=== PATIENT | female | born 1940 | race Caucasian/White ===

== ENCOUNTER → 2016-11-13 | Outpatient (REF) | payer MEDICARE ==
[~2016-11-13] MED LIST: ASPI81TA7 PO; ASPI81TA85 PO; CLOP75TA2 PO; DIGO0.126 PO; DIGO25TA PO; DILT120C14 PO; DOCU10ELUD PO; FURO20TA2 PO; FURO40TA2 PO; GABA250S PO; GABA300C2 PO; GLUC5TAB3 PO; INSUH10VL INJ; INSULANT SC; ISOS20TA2 PO; KETO75CA PO; LASI20TA PO; LEVO250T PO; LISI5TAB PO; MIRT45TA PO; NYST1000 SS; PERF20NE2 IN; PRAV40TA PO; PRED10TA2 PO; PRED50TA2 PO; PRED5TAB PO; ROPI1TAB PO; ROPI2TAB24 PO; SENO8.6T9 PO; STOO100C PO; VITA10002 PO; ZANT150T PO; [UNRECOGNIZED DRUG - OTHER] INH
[2016-11-13 11:52] LABS: MEAN CORPUSCULAR HEMOGLOBIN 27.3 pg (27.0-33.0); MEAN CORPUSCULAR HGB CONC 31.9 g/dl (32.0-36.5); MEAN CORPUSCULAR VOLUME 85.6 fl (80.0-96.0); RED CELL DISTRIBUTION WIDTH 14.3 % (11.5-14.5); WHITE BLOOD COUNT 7.3 K/mm3 (4.0-10.0)
[2016-11-13 12:14] LABS: ALBUMIN/GLOBULIN RATIO 1.05 (1.00-1.93); BILIRUBIN,TOTAL 0.4 MG/DL (0.2-1.0); CALCIUM LEVEL 9.3 MG/DL (8.8-10.2); CREATININE FOR GFR 1.04 MG/DL (0.55-1.02); GLOMERULAR FILTRATION RATE 54.7 (>39); POTASSIUM SERUM 4.6 MEQ/L (3.5-5.1); TOTAL PROTEIN 7.8 GM/DL (6.4-8.2)
== END ==
LOC: M SFHCLERA 10:07
PROVIDERS: ATTEND Family Medicine
DX: Z51.81 Encounter for therapeutic drug level monitoring (principal); Z79.4 Long term (current) use of insulin; E11.9 Type 2 diabetes mellitus without complications
CPT/HCPCS: 80053; 80061; 81001; 82043; 83036; 85027; G0463

== ENCOUNTER → 2016-12-19 | Outpatient (CLI) | payer MEDICARE ==
--- NOTE | 2016-12-19 15:08 | DEXA ---
AP SPINE L1 - L4 0.818 -3.0 -0.6 LT FEMUR TOTAL 0.624 -3.0 -0.7 RT FEMUR TOTAL 0.686 -2.6 -0.2 TOTAL BODY TOTAL OTHER DUAL FEMUR FRAX* ASSESSMENT Risk factors: Premature menopause. 10 year probability of fracture Major osteoporotic fracture 18.8 % Hip fracture 7.5 % COMMENTS: There is osteoporosis of the spine and hips. Mild levoconvex lumbar scoliosis. FOLLOW-UP: Recommendation for the next bone density exam: 2 years. MTDD
== END ==
LOC: M WHC 09:12
PROVIDERS: ATTEND Family Medicine
DX: M81.0 Age-related osteoporosis without current pathological fracture (principal)

== ENCOUNTER 2016-12-27 16:22 | Inpatient (IN) | payer MEDICARE ==
[~2016-12-27] VITALS: Ht 149.9 cm; Wt 48.6 kg
[~2016-12-27 16:22] MED LIST changes: -ALEN70TA39 PO; -ANOR1AER INH; -ASPI1TAB PO; -B-1210009 PO; -CYCL10TA PO; -DIGO0.12 PO; -DILT180C PO; -GABA300C3 PO; -INSUH10VL SC; -ISOS30TA4 PO; -LEVA500T PO; -MIRT30TA3 PO; -PLAV75TA38 PO; -PRAV80TA2 PO; -PRED10TA PO; -RANI150T PO; -SENO8.6T10 PO; -SING10TA32 PO; -VITA400C2 PO; -[UNRECOGNIZED DRUG - CODE] PO
[2016-12-27] MEDS ORDERED: methylPREDNISolone INJ 125 MG/2 ML VIAL (J2930) IV ONE (17:00)
[2016-12-27] MEDS ORDERED: ALBUTEROL SULFATE 2.5 MG/0.5 ML INH NEB SOLN INH ONE (17:00)
[2016-12-27] MEDS ORDERED: IPRATROPIUM 0.5MG/ALBUTEROL 2.5MG INH SOL UD 3ML (DUONEB)(J7620) NEB ONE (17:00)
[2016-12-27 17:32] LABS: BASO % 0.1 % (0.0-1.0); EOS % 0.3 % (0.0-3.0); LARGE UNSTAINED CELL # 0.1 K/mm3 (0.0-0.4); LYMPH # 0.5 K/mm3 (1.5-4.5); LYMPH % 4.3 % (24.0-44.0); MEAN CORPUSCULAR HEMOGLOBIN 27.1 pg (27.0-33.0); MEAN CORPUSCULAR VOLUME 84.7 fl (80.0-96.0); MONO # 0.5 K/mm3 (0.0-0.8); MONO % 4.7 % (0.0-5.0); NEUTROPHILS # 10.4 K/mm3 (1.8-7.7); NEUTROPHILS % 89.7 % (36.0-66.0); PLATELET COUNT, AUTOMATED 182 k/mm3 (150-450); RED CELL DISTRIBUTION WIDTH 14.1 % (11.5-14.5); WHITE BLOOD COUNT 11.6 K/mm3 (4.0-10.0)
[2016-12-27 17:35] LABS: ALBUMIN 3.6 GM/DL (3.2-5.2); ALBUMIN/GLOBULIN RATIO 1.03 (1.00-1.93); ALKALINE PHOSPHATASE 86 U/L (45-117); ALT/SGPT 16 U/L (12-78); ANION GAP 8 MEQ/L (8-16); AST/SGOT 16 U/L (15-37); BILIRUBIN,DIRECT 0.1 MG/DL (0.0-0.2); BLOOD UREA NITROGEN 11 MG/DL (7-18); CALCIUM LEVEL 8.1 MG/DL (8.8-10.2); CARBON DIOXIDE LEVEL 28 MEQ/L (21-32); CHLORIDE LEVEL 104 MEQ/L (98-107); CREATININE FOR GFR 0.94 MG/DL (0.55-1.02); FREE T4 1.06 NG/DL (0.76-1.46); GLOMERULAR FILTRATION RATE > 60.0 (>39); GLUCOSE, FASTING 146 MG/DL (83-110); POTASSIUM SERUM 3.9 MEQ/L (3.5-5.1); SODIUM LEVEL 140 MEQ/L (136-145); TOTAL PROTEIN 7.1 GM/DL (6.4-8.2)
[2016-12-27 17:41] LABS: BILIRUBIN,TOTAL 0.3 MG/DL (0.2-1.0)
[2016-12-27] MEDS ORDERED: ACETAMINOPHEN TAB 650MG DOSE (2X325MG) PO ONE (17:45)
[2016-12-27 18:08] LABS: ABG BASE EXCESS -1.2 (-2.0-2.0); ABG PARTIAL PRESSURE CO2 32.6 mmHg (35.0-45.0); ABG PARTIAL PRESSURE O2 104.3 mmHg (75.0-100.0); ABG STANDARD HCO3 23.5 MEQ/L (22.0-26.0); ABG pH (ARTERIAL) 7.448 UNITS (7.350-7.450)
[2016-12-27] MEDS ORDERED: ISOVUE-370 76% 100ML VIAL (Q9967) As Ordered ONE (18:44)
[2016-12-27] MEDS ORDERED: PLAV75TA38 PO (18:52)
[2016-12-27] MEDS ORDERED: SENO8.6T10 PO (18:52)
[2016-12-27] MEDS ORDERED: DIGO0.12 PO (18:52)
[2016-12-27] MEDS ORDERED: ASPI1TAB PO (18:52)
[2016-12-27] MEDS ORDERED: DILT180C PO (18:52)
[2016-12-27] MEDS ORDERED: B-1210009 PO (18:52)
[2016-12-27] MEDS ORDERED: GABA300C3 PO (19:23)
[2016-12-27] MEDS ORDERED: FURO20TA2 PO (19:23)
[2016-12-27] MEDS ORDERED: INSULANT SC (19:23)
[2016-12-27] MEDS ORDERED: INSUH10VL SC (19:23)
[2016-12-27] MEDS ORDERED: MIRT30TA3 PO (19:27)
[2016-12-27] MEDS ORDERED: PRAV80TA2 PO (19:27)
[2016-12-27] MEDS ORDERED: ISOS30TA4 PO (19:27)
[2016-12-27] MEDS ORDERED: VITA400C2 PO (19:27)
[2016-12-27] MEDS ORDERED: RANI150T PO (19:27)
[2016-12-27] MEDS ORDERED: ROPI1TAB PO (19:27)
[2016-12-27] MEDS ORDERED: CYCL10TA PO (19:27)
[2016-12-27] MEDS ORDERED: ALEN70TA39 PO (19:27)
[2016-12-27] MEDS ORDERED: SING10TA32 PO (19:27)
[2016-12-27] MEDS ORDERED: [UNRECOGNIZED DRUG - CODE] PO (19:27)
[2016-12-27] MEDS ORDERED: ANOR1AER INH (19:28)
--- NOTE | 2016-12-27 20:40 | REPUSA ---
CLINICAL HISTORY: Dyspnea, elevated d-dimers, exclude PE. TECHNIQUE: Multiple incremental axial, coronal and oblique images are obtained from the thoracic inle t to the upper abdomen. Intravenous contrast material was administered as per pulmonary embolism prot ocol. COMMENTS: There is excellent opacification of pulmonary arterial system without evidence for pulmonary embolism . Aorta is of normal caliber without evidence for dissection or aneurysm. Bibasilar scarring is seen. 4 mm right lower lobe nodule is noted. There is no evidence of pleural or parenchymal mass. There are no pleural effusions. There is no evid ence of hilar or mediastinal lymphadenopathy. The heart and great vessels are within normal limits. Images of the upper abdomen demonstrate no evidence of adrenal mass. The bony structures are free of lytic or blastic lesions. Multilevel degenerative changes are seen in volving the visualized thoracolumbar spine. Scattered calcifications are seen involving the aorta and major branches compatible with atherosclero sis. IMPRESSION: No evidence for pulmonary embolism. Bibasilar scarring is seen. 4 mm right lower lobe nodule is noted. Thank you for your kind referral of this patient.
[2016-12-27] MEDS ORDERED: LEVALBUTEROL 1.25 MG/0.5 ML CONCENTRATE NEB INH PRN (21:45)
[2016-12-27] MEDS ORDERED: IPRATROPIUM 0.02% SOLN 0.5MG/2.5 ML NEB INH PRN (21:45)
[2016-12-27] MEDS ORDERED: CYCLOBENZAPRINE 10 MG TAB PO PRN (22:00)
[2016-12-27] MEDS ORDERED: GLUCAGON FOR INJ 1 MG VIAL (J1610) SC PRN (22:00)
[2016-12-27] MEDS ORDERED: GLUCOSE 4 GM CHEW TABLET PO PRN (22:00)
[2016-12-27] MEDS ORDERED: DEXTROSE 50% 50 ML SYRINGE IV PRN (22:00)
[2016-12-27] MEDS ORDERED: LevoFLOXacin IV 500 MG in APPROPRIATE DILUENT 1 EA IV SCH (23:00)
[2016-12-27 23:45] VITALS: BP 123/68
--- NOTE | 2016-12-27 23:51 | HPE ---
DATE OF ADMISSION: 12/27/2016 PRIMARY CARE PHYSICIAN: Dr. Dowling. CHIEF COMPLAINT: Cough, shortness of breath. HISTORY OF THE PRESENT ILLNESS: The patient is a 76-year-old female with a known history of systolic congestive heart failure, chronic obstructive pulmonary disease (COPD), obstructive sleep apnea, and medication non-adherence, who for the last 3 days has had progressively worsening shortness of breath, cough, productive of sputum and fever at home as well. As per the patient's son and [id number] who live with her, they recently had head colds as well. The patient herself says that she feels fine but the cough is annoying to her. She denies chest pain, shortness of breath at the present time, lightheadedness or dizziness. PAST MEDICAL HISTORY: Congestive heart failure ejection fraction (EF) 40-55%. Coronary artery disease. COPD. Atrial fibrillation, status post pacer. Obstructive sleep apnea with noncompliance with continuous positive airway pressure (CPAP). Insulin-dependent type 2 diabetes with neuropathy. Restless leg syndrome. Insomnia. Hypertension. Gastroesophageal reflux disease. Osteoarthritis. Carotid stenosis, followed by a vascular surgeon in [place]. Chronic low back pain. Anxiety. Depression. Constipation. SURGICAL HISTORY: Cardiac stents. Cataract surgery. SOCIAL HISTORY: The patient is a former smoker. Denies alcohol. Lives with her son and [id number]. FAMILY HISTORY: Noncontributory. REVIEW OF SYSTEMS: Negative other than in the history of the present illness (HPI). ALLERGIES: LORAZEPAM, MEPERIDINE, OXYCODONE, SULFA DRUGS, CROSS-REACTORS. HOME MEDICATIONS: - alendronate 70 mg once a week; she has not started this medication yet - NovoLog sliding scale with meals - vitamin E 400 units nightly - Ellipta 62.5-25 inhaled nightly - aspirin 81 mg nightly - Fiber-Caps 3125 mg nightly - Plavix 75 mg nightly - B12 1000 mcg nightly - cyclobenzaprine 10 mg daily as needed for muscle spasms - digoxin 0.125 mg nightly - [id number] mg nightly - Senokot 8.5-50 mg one tablet nightly - Lasix 20 mg daily - gabapentin 900 mg nightly - Lantus 20 units nightly - isosorbide mononitrate extended release 90 mg nightly - mirtazapine 30 mg by mouth nightly - Singulair 10 mg by mouth nightly - pravastatin 80 mg nightly - ranitidine 150 mg two tablets nightly - ropinirole 1 mg by mouth nightly PHYSICAL EXAMINATION: Maximum temperature (T max) 101.3, heart rate 78, respiratory rate 22, blood pressure 122/60, oxygen saturation 95% on room air. GENERAL: She is a frail, elderly, female, resting on left side. She does not appear to be in acute distress. She does appear somewhat restless. She coughs only briefly during the exam. HEENT: Cranial nerves II-XII are grossly intact. She has mildly dry mucous membranes. No elevation CVP. CARDIOVASCULAR EXAM: S1, S2, regular. RESPIRATORY EXAM: Is actually quite clear. She has prolonged expiratory phase with end-inspiratory wheeze throughout. ABDOMINAL EXAM: Benign. EXTREMITIES: No clubbing, cyanosis or edema. LABORATORY STUDIES: WBC 11.6, hemoglobin 12.7, hematocrit 39.7, platelet count is 182. Chemistry panel: Sodium 140, potassium 3.9, chloride 104, bicarbonate 28, BUN 11, creatinine 0.9, lactic acid 1.3. Two sets of troponin are so far negative. TSH within normal limits. BNP within normal limits. Blood gas revealed a pH of 7.4, pCO2 of 32.6 and a pO2 of 104.3. Microbiology: Group A Strep screen is negative. Respiratory panel is negative. Blood culture drawn and pending. CT angiography of the chest is completed that reveals no evidence of pulmonary embolism (PE) and a 4 mm right lower lobe nodule, which is known. ASSESSMENT AND PLAN: This is a 76-year-old female with fever, cough and shortness of breath. PROBLEMS: 1. Fever, cough, shortness of breath. Respiratory panel was negative. Although her CT scan is not suggestive of pneumonia, I do have concern for possible bronchitis or possibly even a viral infection not tested by the respiratory panel given that she does have the sick contact history. I will empirically cover with levofloxacin. She also has worsening shortness of breath and increased cough with increased sputum production. I do have concern for potentially decompensated chronic obstructive pulmonary disease in the setting of the above possible infection. I will provide her with Solu-Medrol, nebulizer treatments, which she has a prescription for at home but is routinely noncompliant with. 2. Congestive heart failure. She appears euvolemic, if anything, possibly even hypovolemic. We will continue with her aspirin and Plavix, isosorbide mononitrate diuretic. 3. Atrial fibrillation. The patient is status post pacer. She is rate controlled with digoxin, diltiazem. She is not anticoagulated other than aspirin and Plavix. 4. B12 deficiency. She is on supplementation. 5. Constipation. Continue with her home bowel regimen. 6. Gastroesophageal reflux disease. Continue with Pepcid. 7. Type 2 diabetes. Continue with insulin sliding scale and hypoglycemic protocol. 8. Neuropathy. Continue with gabapentin. 9. Restless leg syndrome. Continue with Requip. 10. Insomnia. Continue with Remeron. 11. Hypertension. Continue with diltiazem and isosorbide mononitrate and Lasix. 12. Deep vein thrombosis (DVT) prophylaxis. The patient is on heparin. 13. Pulmonary nodule. This is known. She follows with Dr. Silva, output regarding this. DISPOSITION: The patient is admitted to the medical-surgical to Dr. Bajwa's service, who will continue following the patient at 7:00 a.m. [facility]
[2016-12-27] MEDS: HumaLOG INSULIN (NovoLOG) PER UNIT SC SCH (23:56)
[2016-12-28] MEDS: methylPREDNISolone INJ 125 MG/2 ML VIAL (J2930) IV SCH ×2 (00:10→09:30)
[2016-12-28] MEDS: HEPARIN SOD (PORCINE) 5000 UNITS/ML VIAL SC SCH ×3 (00:12→21:10)
[2016-12-28] MEDS: CYANOCOBALAMIN 500 MCG TAB PO SCH ×2 (00:13→21:09)
[2016-12-28] MEDS: DIGOXIN 0.125 MG TAB PO SCH ×2 (00:13→21:12)
[2016-12-28] MEDS: MIRTAZAPINE 15 MG TAB PO SCH ×2 (00:13→21:10)
[2016-12-28] MEDS: PRAVASTATIN 20 MG TAB PO SCH ×2 (00:14→21:08)
[2016-12-28] MEDS: SENOKOT S TAB PO SCH ×2 (00:14→21:08)
[2016-12-28] MEDS: rOPINIRole 1MG TAB PO SCH ×2 (00:15→21:09)
[2016-12-28] MEDS: GABAPENTIN 300 MG CAP PO SCH ×2 (00:15→21:08)
[2016-12-28] MEDS: MONTELUKAST 10 MG TAB PO SCH ×2 (00:15→21:12)
[2016-12-28] MEDS: diltiaZEM **CD** 180 MG CAP PO SCH ×2 (00:16→21:12)
[2016-12-28] MEDS: FAMOTIDINE 20 MG TAB PO SCH ×2 (00:16→21:12)
[2016-12-28] MEDS: CLOPIDOGREL 75 MG TAB PO SCH ×2 (00:16→21:11)
[2016-12-28] MEDS: FIBER-CON 625 MG TAB PO SCH ×2 (00:17→21:09)
[2016-12-28] MEDS: ISOSORBIDE MON. (IMDUR) 30 MG XR TAB PO SCH ×2 (00:17→21:09)
[2016-12-28] MEDS: LEVEMIR (INSULIN DETEMIR) 1 UNITS/0.01ML SC SCH ×2 (00:18→21:13)
[2016-12-28 05:56] LABS: MEAN CORPUSCULAR HEMOGLOBIN 27.1 pg (27.0-33.0); MEAN CORPUSCULAR HGB CONC 32.2 g/dl (32.0-36.5); RED CELL DISTRIBUTION WIDTH 14.2 % (11.5-14.5); WHITE BLOOD COUNT 15.6 K/mm3 (4.0-10.0)
[2016-12-28 06:00] VITALS: BP 119/83
[2016-12-28 06:13] LABS: BLOOD UREA NITROGEN 14 MG/DL (7-18); CREATININE FOR GFR 0.94 MG/DL (0.55-1.02); GLUCOSE, FASTING 165 MG/DL (83-110)
[2016-12-28 06:14] LABS: ANION GAP 10 MEQ/L (8-16); CALCIUM LEVEL 8.3 MG/DL (8.8-10.2); CARBON DIOXIDE LEVEL 27 MEQ/L (21-32); CHLORIDE LEVEL 105 MEQ/L (98-107); GLOMERULAR FILTRATION RATE > 60.0 (>39); POTASSIUM SERUM 4.4 MEQ/L (3.5-5.1); SODIUM LEVEL 142 MEQ/L (136-145)
[2016-12-28] MEDS: IPRATROPIUM 0.02% SOLN 0.5MG/2.5 ML NEB INH SCH ×4 (07:10→19:14)
[2016-12-28] MEDS: LEVALBUTEROL 1.25 MG/0.5 ML CONCENTRATE NEB INH SCH ×4 (07:10→20:00)
--- NOTE | 2016-12-28 09:06 | ECGEPIP ---
Stationary ECG Study [facility] - ED Test Date: 2016-12-27 Pat Name: ROBIN ALANIZ Department: Room: - Gender: F Oracle Specialist: ct : 1940 Requested By: KELI DOMINIQUE Order Number: [id number] Reading MD: Chula Posey Measurements Intervals [place] Rate: 77 P: DE: 0 QRS: 260 QRSD: 145 T: 102 QT: 414 QTc: 469 Interpretive Statements ELECTRONIC VENTRICULAR PACEMAKER ABNORMAL RHYTHM ECG PRIOR A PACED 08/04/13 Electronically Signed On 12-28-2016 9:06:14 EST by Chula Posey
--- NOTE | 2016-12-28 09:07 | ECGEPIP ---
Stationary ECG Study [facility] - ED Test Date: 2016-12-27 Pat Name: ROBIN ALANIZ Department: Room: [place] [address] Gender: F Campus Monitor: perry : 1940 Requested By: KELI DOMINIQUE Order Number: [id number] Reading MD: Chula Posey Measurements Intervals [place] Rate: 82 P: 57 IN: 177 QRS: -57 QRSD: 144 T: 126 QT: 418 QTc: 490 Interpretive Statements ELECTRONIC VENTRICULAR PACEMAKER ABNORMAL RHYTHM ECG SINUS RHYTHM SIMILAR 12/27/16 17:07 Electronically Signed On 12-28-2016 9:07:22 EST by Chula Posey
[2016-12-28] MEDS: FUROSEMIDE 20 MG TAB PO SCH (09:29)
[2016-12-28] MEDS: HumaLOG INSULIN (NovoLOG) PER UNIT SC SCH ×4 (09:30→21:21)
--- NOTE | 2016-12-28 10:31 | IPNPDOC ---
Text Note Date of Service The patient was seen on 12/28/16. NOTE Subjective: 76 yo F was seen and examined at bedside. Admits to SOB and cough with phlegm which she cannot expectorate. Admits she may be constipated. She denied dizziness, blurred vision, fevers, chills, chest pain, nausea, vomiting, diarrhea, abdominal pain, weakness, fatigue, rashes/lesions, urinary incontinence, dysuria, hematuria, hematochezia. Reports a loss of appetite as well, which she states she always has. Nursing reports no acute events overnight. Objective: Vitals: T96.4, P 70, RR 18 , BP 119/83 (95), Pulse Ox: 94% on room air. General: Pleasant but withdrawn thin cachectic elderly female resting comfortably in bed. Patient awake, alert and oriented, verbal and able to answer questions appropriately. She does not appear to be in any acute distress. HEENT: Normocephalic Atraumatic. Grossly normal hearing bilaterally. Sclera Nonicteric. No external nasal lesions. Endocrinology: No thyromegaly. Neck: Supple. No cervical LAD bilaterally. Heart: Irregularly irregular rhythm, normal rate. Normal S1-S2. No murmurs, rubs , clicks or gallops Lungs: Clear to auscultation bilaterally with no wheezes, rales or rhonchi. Abdomen: Bowel sounds present, soft, no masses to palpation. Mild tenderness to palpation of LUQ and LLQ with no rebound or guarding. Extremities: No clubbing, cyanosis, edema. Without amputations/deformities. No pedal edema. MSK: Able to move all extremities. Vascular: +2 radial pulses bilaterally. Psychiatric: Looks to be withdrawn and may be a bit depressed. Laboratory data: Please see below. D-dimer: 822.8 (H) Microbiology: Please see below. Respiratory Virus Panel: (-). Group A Rapid Strep Test: (-) Blood Cx pending. Imaging: No new imaging today. CT Angiography Chest 12/27/16: showed no evidence of PE, bibasilar scarring was seen, and there was a 4 mm RLL nodule. Assessment/Plan: 76 yo F with PMH significant for COPD, systolic CHF, obstructive sleep apnea, and nonadherence with medication, is presenting for progressively worsening SOB, fever, and cough. Also found to have leukocytosis. 1) SOB likely secondary to possible decompensated COPD/Exacerbation: Satting today at 94% on room air. Continue breathing treatments with atrovent 0.5 mg QID inhalation and q2h PRN SOB/wheezing, xoponex nebulizer 1.25 mg QID and q2h PRN SOB/wheezing, solumedrol 60 mg q8h IV, and empiric coverage with levofloxacin 50 mg IV q48 hours. Aim for O2 saturations of 88-92%. Continue to monitor for improved status. Monitor daily BMPs. 2) Cough: have ordered mucinex to help expectorate secretions/mucous. Continue to monitor for any signs of infection. 3) Fever: temperature WNL today. Continue to monitor. 4) Leukocytosis: Elevated WBC of 15.6 from 11.6. Continue tx with levaquin and monitor daily CBCs. 5) CHF: No clinical signs of fluid overload. Is euvolemic. Continue isosorbide mononitrate diuretic, aspirin, and plavix. Also on lasix for HTN. Placed on 2g sodium diet today. 6) Atrial Fibrillation status-post pacer: Continue rate control with digoxin, diltiazem. Anticoagulation already with aspirin and plavix. 7) HTN: continue diltiazem, isosorbide mononitrate, and lasix. Placed on 2 g sodium diet. 8) Vitamin B12 Deficiency: continue supplementation. 9) Type 2 DM: continue with ISS and hypoglycemia protocol. Monitor daily BMPs and fingersticks as necessary. 10) Neuropathy: continue gabapentin. 11) GERD: continue pepcid. 12) Restless Leg Syndrome: continue requip. 13) Insomnia: continue remeron. 14) RLL 4 mm Pulmonary Nodule: presence is known. Follow up with and recommendations of Dr. Silva. 15) Continue home medications. DVT ppx: continue heparin 5000 subq q12 hours. Immunizations as per protocol. VS,Fishbone, I+O VS, Fishbone, I+O Laboratory Tests 12/27/16 16:58 Red Blood Count 4.69, Mean Corpuscular Volume 84.7, Mean Corpuscular Hemoglobin 27.1, Mean Corpuscular Hemoglobin Concent 32.0, Red Cell Distribution Width 14.1 , Neutrophils (%) (Auto) 89.7 H, Lymphocytes (%) (Auto) 4.3 L, Monocytes (%) ( Auto) 4.7, Eosinophils (%) (Auto) 0.3, Basophils (%) (Auto) 0.1, Neutrophils # ( Auto) 10.4 H, Lymphocytes # (Auto) 0.5 L, Monocytes # (Auto) 0.5, Eosinophils # (Auto) 0.0, Basophils # (Auto) 0.0 12/28/16 05:40 Red Blood Count 4.58, Mean Corpuscular Volume 84.0, Mean Corpuscular Hemoglobin 27.1, Mean Corpuscular Hemoglobin Concent 32.2, Red Cell Distribution Width 14.2 , Calcium Level 8.3 L Vital Signs Date Time Temp Pulse Resp B/P Pulse Ox O2 Delivery O2 Flow Rate FiO2 12/28/16 06:00 96.4 70 18 119/83 94 Room Air I&O- Last 24 Hours up to 6 AM 12/28/16 06:00 Intake Total 600 ml Output Total 0 ml Balance 600 ml GME ATTESTATION GME ATTESTATION My preceptor for this patient encounter was Dr. Guillermo Bajwa, and was physically present in the building during the encounter and was fully available. As needed, all aspects of the patient interview, examination, medical decision making process, and medical care plan development were reviewed and approved by the preceptor. Preceptor is aware and concurs with the plan as stated in the body of this note and will attest to such by his/her cosignature. GUILLERMO ALMAGUER OGME-1 Dec 28, 2016 10:31
[2016-12-28] MEDS ORDERED: MOM 30ML SUSPENSION UDC PO PRN (11:45)
[2016-12-28] MEDS: guaiFENesin ER 600 MG TAB PO SCH ×2 (13:52→21:10)
[2016-12-28 14:00] VITALS: BP 138/60
[2016-12-28] MEDS ORDERED: methylPREDNISolone INJ 40 MG/1 ML VIAL (J2920) IV SCH (21:00)
[2016-12-28] MEDS: ASPIRIN 81 MG ENTERIC TAB PO SCH (21:11)
[2016-12-28 22:00] VITALS: BP 131/74
[2016-12-29 05:46] LABS: MEAN CORPUSCULAR HEMOGLOBIN 27.4 pg (27.0-33.0); MEAN CORPUSCULAR HGB CONC 32.7 g/dl (32.0-36.5); MEAN CORPUSCULAR VOLUME 83.7 fl (80.0-96.0); RED CELL DISTRIBUTION WIDTH 14.5 % (11.5-14.5); WHITE BLOOD COUNT 16.2 K/mm3 (4.0-10.0)
[2016-12-29 06:00] VITALS: BP 132/62
[2016-12-29 06:01] LABS: CALCIUM LEVEL 8.6 MG/DL (8.8-10.2); CREATININE FOR GFR 1.08 MG/DL (0.55-1.02); GLOMERULAR FILTRATION RATE 52.4 (>39); POTASSIUM SERUM 4.2 MEQ/L (3.5-5.1)
[2016-12-29] MEDS: IPRATROPIUM 0.02% SOLN 0.5MG/2.5 ML NEB INH SCH ×4 (07:02→19:21)
[2016-12-29] MEDS: LEVALBUTEROL 1.25 MG/0.5 ML CONCENTRATE NEB INH SCH ×4 (07:02→19:21)
[2016-12-29] MEDS: HumaLOG INSULIN (NovoLOG) PER UNIT SC SCH ×4 (07:30→22:46)
[2016-12-29] MEDS: guaiFENesin ER 600 MG TAB PO SCH ×2 (08:48→22:54)
[2016-12-29] MEDS: FUROSEMIDE 20 MG TAB PO SCH (08:48)
[2016-12-29] MEDS: HEPARIN SOD (PORCINE) 5000 UNITS/ML VIAL SC SCH ×2 (08:48→22:46)
[2016-12-29] MEDS: predniSONE 20 MG TAB PO SCH (08:57)
[2016-12-29] MEDS ORDERED: ACETAMINOPHEN TAB 650MG DOSE (2X325MG) PO PRN (09:00)
--- NOTE | 2016-12-29 13:28 | IPNPDOC ---
Subjective Date Seen The patient was seen on 12/29/16. Subjective Chief Complaint/HPI The patient is a 76-year-old female admitted with a reason for visit of Copd Exacerbation. General: Denies: Chills, Night Sweats Constitutional: Denies: Chills, Fever Eyes: Denies: Pain, Vision change ENT: Denies: Ear Pain, Head Aches Skin: Denies: Lesions, Rash Pulmonary: Reports: Cough, Denies: Dyspnea Cardiovascular: Denies: Chest Pain, Palpitations Gastrointestinal: Denies: Nausea, Vomiting Genitourinary: Denies: Dysuria, Frequency Hematologic: Denies: Bleeding Excessively, Bruising Objective Physical Examination General Exam: Positive: Alert, Cooperative, No Acute Distress ENT Exam: Positive: Atraumatic, Mucous membr. moist/pink Neck Exam: Negative: JVD Chest Exam: Positive: Clear to auscultation, Normal air movement Heart Exam: Positive: Normal S1, Normal S2, Rate Normal Abdomen Exam: Positive: Soft, Negative: Tenderness Extremity Exam: Negative: Swelling, Tenderness Assessment /Plan Plan/VTE VTE Prophylaxis Ordered?: Yes Plan SOB likely secondary to possible decompensated COPD/Exacerbation CXR noted, Respiratory Panel negative Continue atrovent 0.5 mg QID inhalation, Nebs Prednisone 40mg daily PO Levaquin ordered Patient notes improvement in her respiratory status, will continue to monitor History of CAD, Systolic CHF Appears euvolemic Continue isosorbide mononitrate diuretic, aspirin, and plavix, lasix Atrial Fibrillation status-post pacer Continue rate control with digoxin, diltiazem Not on AC, cont with aspirin and plavix. HTN, stable Continue diltiazem, isosorbide mononitrate, and lasix Vitamin B12 Deficiency continue supplementation. Type 2 DM continue with ISS and hypoglycemia protocol Neuropathy continue gabapentin GERD continue pepcid Restless Leg Syndrome continue requip. Insomnia continue remeron. RLL 4 mm Pulmonary Nodule Follow up with and recommendations of Dr. Silva. DVT prophylaxis- Heparin SC Disposition- Respiratory status continues to improve. DC in 24-48 hours pending clinical improvement. VS, I&O, 24H, Fishbone Vital Signs/I&O Vital Signs Date Time Temp Pulse Resp B/P Pulse Ox O2 Delivery O2 Flow Rate FiO2 12/29/16 11:44 Room Air 12/29/16 06:00 96.9 64 20 132/62 96 I&O- Last 24 Hours up to 6 AM 12/29/16 06:00 Intake Total 1300 ml Output Total 900 ml Balance 400 ml Laboratory Data 24H LABS Laboratory Tests 2 12/28/16 16:41: Bedside Glucose (Misc Panel) 236H 12/28/16 20:06: Bedside Glucose (Misc Panel) 249H 12/29/16 05:33: Anion Gap 6L, Blood Urea Nitrogen 24#H, Creatinine 1.08H, Sodium Level 140, Potassium Level 4.2, Chloride Level 107, Carbon Dioxide Level 27, Calcium Level 8.6L, Glomerular Filtration Rate 52.4 12/29/16 11:44: Bedside Glucose (Misc Panel) 241H CBC/BMP Laboratory Tests 12/29/16 05:33 Calcium Level 8.6 L, Red Blood Count 4.33, Mean Corpuscular Volume 83.7, Mean Corpuscular Hemoglobin 27.4, Mean Corpuscular Hemoglobin Concent 32.7, Red Cell Distribution Width 14.5 Microbiology Microbiology 12/27/16 Blood Culture - Preliminary, Resulted No growth after 24 hours . All specim... 12/27/16 Blood Culture - Preliminary, Resulted No growth after 24 hours . All specim... 12/27/16 Respiratory Virus Panel (PCR) (DARRELL) - Final, Complete 12/27/16 Group A Streptococcus Screen ([facility]RELL) - Final, Complete 12/27/16 Group A Streptococcus Screen (DARRELL) - Final, Complete COLEMAN HOU MD Dec 29, 2016 13:28
[2016-12-29 14:00] VITALS: BP 118/56
[2016-12-29] MEDS ORDERED: SENNA 8.6 MG TAB (SENOKOT) PO PRN (14:45)
[2016-12-29] MEDS ORDERED: LevoFLOXacin 500 MG TABLET PO SCH (18:00)
[2016-12-29] MEDS: diltiaZEM **CD** 180 MG CAP PO SCH (21:00)
[2016-12-29 22:00] VITALS: BP 145/65
[2016-12-29] MEDS: LEVEMIR (INSULIN DETEMIR) 1 UNITS/0.01ML SC SCH (22:45)
[2016-12-29] MEDS: ASPIRIN 81 MG ENTERIC TAB PO SCH (22:46)
[2016-12-29] MEDS: PRAVASTATIN 20 MG TAB PO SCH (22:48)
[2016-12-29] MEDS: FIBER-CON 625 MG TAB PO SCH (22:48)
[2016-12-29] MEDS: MONTELUKAST 10 MG TAB PO SCH (22:49)
[2016-12-29] MEDS: CYANOCOBALAMIN 500 MCG TAB PO SCH (22:49)
[2016-12-29] MEDS: SENOKOT S TAB PO SCH (22:49)
[2016-12-29] MEDS: DIGOXIN 0.125 MG TAB PO SCH (22:50)
[2016-12-29] MEDS: GABAPENTIN 300 MG CAP PO SCH (22:51)
[2016-12-29 22:55] VITALS: BP 145/65
[2016-12-29] MEDS: ISOSORBIDE MON. (IMDUR) 30 MG XR TAB PO SCH (22:55)
[2016-12-29] MEDS: rOPINIRole 1MG TAB PO SCH (22:56)
[2016-12-29] MEDS: MIRTAZAPINE 15 MG TAB PO SCH (22:56)
[2016-12-29] MEDS: FAMOTIDINE 20 MG TAB PO SCH (22:57)
[2016-12-29] MEDS: CLOPIDOGREL 75 MG TAB PO SCH (23:03)
[2016-12-30 06:00] VITALS: BP 136/62
[2016-12-30] MEDS: LEVALBUTEROL 1.25 MG/0.5 ML CONCENTRATE NEB INH SCH ×2 (07:15→11:12)
[2016-12-30] MEDS: IPRATROPIUM 0.02% SOLN 0.5MG/2.5 ML NEB INH SCH ×2 (07:15→11:12)
[2016-12-30 07:16] LABS: MEAN CORPUSCULAR HGB CONC 31.7 g/dl (32.0-36.5); MEAN CORPUSCULAR VOLUME 85.2 fl (80.0-96.0); RED CELL DISTRIBUTION WIDTH 14.7 % (11.5-14.5); WHITE BLOOD COUNT 13.8 K/mm3 (4.0-10.0)
[2016-12-30 07:27] LABS: CALCIUM LEVEL 8.9 MG/DL (8.8-10.2); CREATININE FOR GFR 1.16 MG/DL (0.55-1.02); GLOMERULAR FILTRATION RATE 48.2 (>39); POTASSIUM SERUM 4.4 MEQ/L (3.5-5.1)
[2016-12-30] MEDS: HumaLOG INSULIN (NovoLOG) PER UNIT SC SCH ×2 (07:41→12:44)
[2016-12-30] MEDS: predniSONE 20 MG TAB PO SCH (08:32)
[2016-12-30] MEDS: guaiFENesin ER 600 MG TAB PO SCH (08:32)
[2016-12-30] MEDS: HEPARIN SOD (PORCINE) 5000 UNITS/ML VIAL SC SCH (08:33)
[2016-12-30] MEDS: FUROSEMIDE 20 MG TAB PO SCH (08:33)
[2016-12-30] MEDS ORDERED: LEVA500T PO (10:33)
[2016-12-30] MEDS ORDERED: PRED10TA PO (10:33)
[2016-12-30 14:00] VITALS: BP 144/78
--- NOTE | 2017-01-01 17:48 | DS.PDOC ---
Discharge Summary General Date of Admission Dec 27, 2016 at 21:49 Date of Discharge Dec 30, 2016 at 15:40 Primary Care Physician: Dmitri Dowling MD Attending Physician: GUILLERMO HOU MD Discharge Summary PCP: Dr. Dmitri Dowling at [facility] Attending Physician: Dr. Guillermo Hou Consults: None Discharge diagnosis: SOB secondary to Acute Decompensated COPD/Exacerbation Secondary diagnoses: Cough Fever Leukocytosis Chronic Systolic CHF EF 40-45% Atrial fibrillation status post pacer Hypertension Vitamin B12 deficiency Insulin-dependent Type 2 diabetes mellitus Neuropathy GERD Restless leg syndrome Insomnia Right lower lobe 4 mm pulmonary nodule Coronary artery disease Carotid stenosis, followed by a vascular surgeon in [place] Obstructive sleep apnea with noncompliance with CPAP Osteoarthritis Chronic low back pain Anxiety Depression Constipation Hospital course: This is a 76 yo F who presented today for progressively worsening shortness of breath, fever, and cough. Patient has a history of medication nonadherence. 3 days prior to presentation, the patient began to have shortness of breath which became worse, developed cough productive of sputum, and a fever while at home. Sick contacts include patient's son and [id number] who recently had had colds and with the patient. Patient stated cough was the most bothersome for her. During the time of presentation, the patient denied shortness of breath, chest pain, dizziness, and lightheadedness. In the emergency department, blood work was significant for an elevated WBC count of 11.6, H&H of 12.7 and 39.7, platelet count of 182, lactic acid 1.3, 2 sets of troponin which were negative. An ABG revealed a normal pH of 7.4, PCO2 of 32.6 and a PaO2 of 104.3. Group A strep screen was negative, respiratory panel was negative, and blood cultures showed no growth to date [address] angiography of the chest revealed no evidence of pulmonary embolism and a 4 mm right lower lobe nodule which was already known. The hospitalist team was then consult said for inpatient admission. Patient was treated with Levaquin, breathing treatments with Xopenex nebulizer, Atrovent PRN SOB/wheezing, Solu- Medrol, and Mucinex to help expectorate secretions. Was given DVT prophylaxis with heparin. Home medications were also continued. Patient's breathing status and cough had improved and fever also resolved. Leukocytosis was still present most likely secondary to steroids. In addition, patient received physical therapy during Hospital stay and had achieved functional mobility at baseline prior to hospital stay. Patient has improved and is clinically and hemodynamically stable. Remained afebrile and there were no major complications during the hospital stay. Progress note on date of discharge: Subjective: Today, patient denies fevers, chills, dizziness, blurred vision, sore throat, earaches, runny nose, cough, chest pain, SOB, nausea, vomiting, diarrhea, constipation, weakness, fatigue, hematochezia, hematuria, rashes/lesions, weight gain/loss. States she is feeling better. Nursing reported that patient remained stable with no acute overnight events. (It is noted in the chart, however, that patient has not had a bowel movement for a few days now.) Objective: Vitals on Morning of Discharge: T96.5, P 61, RR 20, BP 136/62 (86), Pulse Ox: 94 % on room air. I's/O's: 4540/2650 mLs,+2650 mLs balance. Wt: 48.6 kg, Voids: 4. BMs: 0. General: Pleasant, thin cachectic, malnourished, elderly female resting comfortably in bed. Patient awake, alert and oriented, verbal and able to answer questions appropriately. She does not appear to be in any acute distress. HEENT: Normocephalic Atraumatic. Grossly normal hearing bilaterally. Sclera Nonicteric. No external nasal lesions. Endocrinology: No thyromegaly. Neck: Supple. No cervical LAD bilaterally. Heart: Irregularly irregular rhythm, normal rate, normal S1-S2. No murmurs, rubs , clicks or gallops. Lungs: Clear to auscultation bilaterally with no wheezes, rales or rhonchi. Abdomen: Active bowel sounds, soft, no masses to palpation. Mild tenderness to palpation of LUQ and LLQ with no rebound or guarding. Extremities: No clubbing, cyanosis, edema. Without amputations/deformities. No pedal edema. MSK: Able to move all extremities. Vascular: +2 radial pulses bilaterally. +2 dorsalis pedis pulses bilaterally. Psychiatric: Seems withdrawn and a bit depressed. Labs: Please see below. Blood cx show NGTD x 72 hours. Assessment: 76 yo F with PMH significant for COPD, systolic CHF, obstructive sleep apnea, and nonadherence with medication, was admitted for progressively worsening SOB, fever, cough, and was found to have leukocytosis secondary to decompensated COPD/exacerbation. Disposition/Plan: Discharge home today with 12 days of 10 mg prednisone tablets taper and 3 days of levaquin 500 mg PO q2D at 1800. Prednisone 10 mg tab taper: Take 3 tabs by mouth daily for 2 days, then stop. Take 2 tabs by mouth daily for 2 days, then stop. Take 1 tab by mouth daily for 2 days, then stop. Follow up with PCP Dr. Dmitri Dowling within 7 days. Continue home medications. Physical Therapy Goals: Patient safe for home from a functional mobility stand point. Recommended continued ambulation 3-4x/day. Patient was discharged from physical therapy at this time secondary to no skilled therapy needed at this time. Patient demonstrates mobility at baseline. Follow-up: Recommended with PCP within 7 days. Activity: No restrictions and as tolerated. Diet: 2g low sodium. Encourage increase in oral diet and increased hydration. Medications on Discharge: Alendronate 70 mg by mouth every week Anoro Ellipta 62.5-25 Mcg/INH 1 Aer INH QHS Aspirin 81 mg by mouth daily at bedtime Calcium Polycarbophil 625 mg tab (Fiber-Caps) 3125 mg PO QHS Clopidogrel 75 mg by mouth daily at bedtime Cyanocobalamin 1000 g by mouth daily at bedtime Cyclobenzaprine 10 mg by mouth daily when necessary muscle spasms Digoxin 0.125 mg by mouth daily at bedtime Diltiazem 180 mg HCl ER 180 mg by mouth daily at bedtime Senokot S 8.6-50 mg 4 tab mouth daily at bedtime Furosemide 20 mg PO daily Gabapentin 900 mg PO QHS Insulin glargine 1 unit/0.01 mL suspension (Lantus) 20 units subcutaneous daily at bedtime Isosorbide mononitrate ER 90 mg by mouth daily at bedtime Levofloxacin 500 mg by mouth every 2 days at 1800 #3 tab Mirtazapine 30 mg by mouth daily at bedtime Singulair 10 mg by mouth daily at bedtime Pravastatin 80 mg by mouth daily at bedtime Prednisone 10 mg by mouth as directed #12 tabs: Prednisone taper as above Ranitidine 150 mg 2 tabs by mouth daily at bedtime Ropinirole 1 mg by mouth daily at bedtime MEDICATIONS HELD: Insulin aspart 100 units per milliliter injection (NovoLog) subcutaneous before meals at bedtime per sliding scale Vitamin E4 100 units by mouth daily at bedtime Time spent on discharge: 35 minutes. Vital Signs/I&Os Vital Signs Date Time Temp Pulse Resp B/P Pulse Ox O2 Delivery O2 Flow Rate FiO2 12/30/16 14:00 96.4 93 20 144/78 96 Room Air Microbiology Microbiology 12/27/16 Blood Culture - Final, Complete NO GROWTH AFTER 5 DAYS 12/27/16 Blood Culture - Final, Complete NO GROWTH AFTER 5 DAYS 12/27/16 Respiratory Virus Panel (PCR) (DARRELL) - Final, Complete 12/27/16 Group A Streptococcus Screen (DARRELL) - Final, Complete 12/27/16 Group A Streptococcus Screen (DARRELL) - Final, Complete Discharge Medications Scheduled (Anoro Ellipta 62.5-25 Mcg/INH) 1 Aer Aer 1 AER INH QHS (Reported) Alendronate Sodium (Alendronate Sodium) 70 Mg Tab 70 MG PO QWEEK (Reported) NEW MEDICATION, HAS NOT STARTED YET. PLANS TO START TAKING ON SATURDAYS Aspirin (Aspirin 81) 81 Mg Tab 81 MG PO QHS (Reported) Calcium Polycarbophil (Fiber-Caps) 625 Mg Tab 3,125 MG PO QHS (Reported) Clopidogrel Bisulfate (Plavix) 75 Mg Tab 75 MG PO QHS (Reported) Cyanocobalamin (B-12) 1,000 Mcg Tab 1,000 MCG PO QHS (Reported) Digoxin (Digoxin) 0.125 Mg Tab 0.125 MG PO QHS (Reported) Diltiazem HCl (Diltiazem HCl ER) 180 Mg Cap 180 MG PO QHS (Reported) Docusate Sod/Senna (Senokot S 8.6-50 mg) 1 Tab Tab 4 TAB PO QHS (Reported) Furosemide (Furosemide) 20 Mg Tab 20 MG PO DAILY (Reported) Gabapentin (Gabapentin) 300 Mg Cap 900 MG PO QHS (Reported) Insulin Aspart (Novolog) 100 U/Ml Inj 0 SC ACHS (Reported) PER SLIDING SCALE Insulin Glargine (Lantus) 1 Units/0.01 Ml Susp 20 UNITS SC QHS (Reported) Isosorbide Mononitrate (Isosorbide Mononitrate ER) 30 Mg Tab 90 MG PO QHS ( Reported) Levofloxacin Hemihydrate (Levaquin) 500 Mg Tab 500 MG PO Q2D@18 Mirtazapine (Mirtazapine) 30 Mg Tab 30 MG PO QHS (Reported) Montelukast Sodium (Singulair) 10 Mg Tab 10 MG PO QHS (Reported) Pravastatin Sodium (Pravastatin Sodium) 80 Mg Tab 80 MG PO QHS (Reported) Prednisone (Prednisone) 10 Mg Tab 10 MG PO ASDIRECTED Ranitidine HCl (Ranitidine HCl) 150 Mg Tab 2 TAB PO QHS (Reported) Ropinirole Hydrochloride (Ropinirole HCl) 1 Mg Tab 1 MG PO QHS (Reported) Vitamin E (Vitamin E) 400 Unit Cap 400 UNIT PO QHS (Reported) Scheduled PRN Cyclobenzaprine HCl (Cyclobenzaprine HCl) 10 Mg Tab 10 MG PO DAILY PRN PRN MUSCLE SPASMS (Reported) Allergies Coded Allergies: Lorazepam (Verified Allergy, Unknown, 12/27/16) Meperidine (Verified Allergy, Unknown, 12/27/16) Oxycodone (Verified Allergy, Unknown, from PERCOCET PATIENT STATES RXN YEARS AGO DOESN'T REMEMBER, 12/27/16) Rice (Verified Allergy, Unknown, 12/30/16) Sulfa Drugs (Verified Allergy, Unknown, 12/27/16) Sulfa Drugs Cross Reactors (Verified Allergy, Unknown, 12/27/16) GME ATTESTATION GME ATTESTATION My preceptor for this patient encounter was Dr. Guillermo Hou, and was physically present in the building during the encounter and was fully available. As needed, all aspects of the patient interview, examination, medical decision making process, and medical care plan development were reviewed and approved by the preceptor. Preceptor is aware and concurs with the plan as stated in the body of this note and will attest to such by his/her cosignature. GUILLERMO ALMAGUER OGME-1 Jan 01, 2017 17:48
== END 2016-12-30 15:40 | disposition home or self-care (01) | DRG 191 ==
LOC: EDBD 16:22 → M ED 17:18 → M ED INP 21:49 → M MS5PR 23:42
PROVIDERS: ADMIT Internal Medicine; ATTEND Internal Medicine
DX: J44.1 Chronic obstructive pulmonary disease with (acute) exacerbation (principal); I50.22 Chronic systolic (congestive) heart failure; E46 Unspecified protein-calorie malnutrition; I25.10 Atherosclerotic heart disease of native coronary artery without angina pectoris; I48.91 Unspecified atrial fibrillation; G47.33 Obstructive sleep apnea (adult) (pediatric); E11.40 Type 2 diabetes mellitus with diabetic neuropathy, unspecified; G25.81 Restless legs syndrome; I11.0 Hypertensive heart disease with heart failure; K21.9 Gastro-esophageal reflux disease without esophagitis; M19.90 Unspecified osteoarthritis, unspecified site; M54.5 Low back pain; F41.9 Anxiety disorder, unspecified; F32.9 Major depressive disorder, single episode, unspecified; K59.00 Constipation, unspecified; R91.1 Solitary pulmonary nodule; E53.8 Deficiency of other specified B group vitamins; I65.29 Occlusion and stenosis of unspecified carotid artery; Z95.0 Presence of cardiac pacemaker; Z95.5 Presence of coronary angioplasty implant and graft; Z87.891 Personal history of nicotine dependence; Z91.19 Patient's noncompliance with other medical treatment and regimen; Z88.2 Allergy status to sulfonamides; Z88.8 Allergy status to other drugs, medicaments and biological substances; Z88.5 Allergy status to narcotic agent; Z79.4 Long term (current) use of insulin; Z79.82 Long term (current) use of aspirin; Z79.02 Long term (current) use of antithrombotics/antiplatelets; Z79.899 Other long term (current) drug therapy

== ENCOUNTER → 2016-12-27 | Outpatient (CLI) | payer MEDICARE ==
[~2016-12-27] MED LIST changes: +ALEN70TA39 PO; +ANOR1AER INH; +ASPI1TAB PO; +B-1210009 PO; +CYCL10TA PO; +DIGO0.12 PO; +DILT180C PO; +GABA300C3 PO; +INSUH10VL SC; +ISOS30TA4 PO; +LEVA500T PO; +MIRT30TA3 PO; +PLAV75TA38 PO; +PRAV80TA2 PO; +PRED10TA PO; +RANI150T PO; +SENO8.6T10 PO; +SING10TA32 PO; +VITA400C2 PO; +[UNRECOGNIZED DRUG - CODE] PO
--- NOTE | 2016-12-27 16:01 | REP ---
Chest x-ray: Two views: History: Known COPD with acute onset cough and shortness of breath. Comparison study: 07/08/2016. Findings: A bipolar pacemaker is seen in the right heart via the left subclavian vein as before. The heart is not enlarged. The lungs are somewhat hyperinflated but clear. Pleural angles are sharp. Coronary artery stent material is visible in the right coronary artery distribution on the lateral radiograph unchanged. Aorta shows some calcification. No infiltrate is seen in the lung caraballo. Pulmonary vasculature is not increased. Impression: Pacemaker in place. The patient status post coronary artery stenting. No acute disease. Signed by Robe Waldron MD 12/27/2016 05:18 P
== END ==
LOC: M LRY 14:46
PROVIDERS: ATTEND Family Medicine
DX: R06.02 Shortness of breath (principal); Z98.890 Other specified postprocedural states; Z95.0 Presence of cardiac pacemaker

== ENCOUNTER → 2017-05-02 | Outpatient (CLI) | payer MEDICARE ==
[~2017-05-02] VITALS: Ht 162.6 cm; Wt 44.0 kg
[~2017-05-02] MED LIST changes: +ALEN70TA39 PO; +ANOR1AER INH; +ASPI1TAB PO; +B-1210009 PO; +CYCL10TA PO; +DEXTROSE 50% 50 ML SYRINGE As Ordered ONE; +DEXTROSE 50% 50 ML SYRINGE IV ONE; +DIGO0.12 PO; +DILT180C PO; +GABA-282 PO; +INSUH10VL SC; +ISOS30TA4 PO; +LEVA1TAB2 PO; +LINZ290C PO; +MIRT30TA3 PO; +NS 500 ML IV ONE; +PLAV1TAB2 PO; +PRAV80TA2 PO; +PRED1TABL PO; +PROAAER10 INH; +PROPOFOL 200 MG/20 ML VIAL As Ordered ONE; +RANI150T PO; +SENO8.6T10 PO; +SING10TA32 PO; +VITA400C7 PO; +[UNRECOGNIZED DRUG - CODE] PO; +rescue inhaler
--- NOTE | 2017-05-02 09:12 | ROOR ---
Patient Name: Carly Alexandra Procedure Date: 05/02/2017 8:32 AM Date of : 1940 Age: 77 Room: [facility] Gender: Female Note Status: Finalized Procedure: Colonoscopy Indications: Abdominal pain in the left lower quadrant, Constipation Providers: Yosef SANDERS MD Referring MD: Rose ASHLEY NP Requesting Provider: Medicines: Monitored Anesthesia Care Complications: No immediate complications. Procedure: Pre-Anesthesia Assessment: - The heart rate, respiratory rate, oxygen saturations, blood pressure, adequacy of pulmonary ventilation, and response to care were monitored throughout the procedure. The Colonoscope was introduced through the anus and advanced to the cecum, identified by appendiceal orifice and ileocecal valve. The Colonoscope was introduced through the anus and advanced to the cecum, identified by appendiceal orifice and ileocecal valve. The colonoscopy was performed with difficulty due to multiple diverticula in the colon. Successful completion of the procedure was aided by withdrawing the scope and replacing with the 'babyscope'. The patient tolerated the procedure well. The quality of the bowel preparation was fair. Findings: The perianal and digital rectal examinations were normal. Multiple small and large-mouthed diverticula were found in the sigmoid colon. There was narrowing of the colon in association with the diverticular opening. This was biopsied with a cold forceps for histology. Two sessile polyps were found in the splenic flexure and cecum. The polyps were 4 to 5 mm in size. These polyps were removed with a cold snare. Resection and retrieval were complete. The exam was otherwise without abnormality. Impression: - Preparation of the colon was fair. - Moderate diverticulosis in the sigmoid colon. There was significant narrowing and acute angulation of the colon in association with the diverticular opening. Biopsied. - Two 4 to 5 mm polyps at the splenic flexure and in the cecum, removed with a cold snare. Resected and retrieved. - The examination was otherwise normal. Recommendation: - Miralax 1 capful (17 grams) in 8 ounces of water PO daily. - Use Linzess (linaclotide) 290 mcg PO daily. - Use both--Miralax and Linzess. - Telephone endoscopist for pathology results in 2 weeks. - Resume Plavix (clopidogrel) at prior dose tomorrow. Yosef Sanders MD Yosef SANDERS MD 05/02/2017 9:12:40 AM This report has been signed electronically. Number of Addenda: 0 Note Initiated On: 05/02/2017 8:32 AM Estimated Blood Loss: Estimated blood loss: none.
[2017-05-02 09:45] VITALS: BP 108/68
== END | disposition home or self-care (01) ==
LOC: M OPP 07:06
PROVIDERS: ATTEND Internal Medicine Gastroenterology
DX: R10.32 Left lower quadrant pain (principal); K59.00 Constipation, unspecified; D12.3 Benign neoplasm of transverse colon; D12.0 Benign neoplasm of cecum; K57.30 Diverticulosis of large intestine without perforation or abscess without bleeding; I25.10 Atherosclerotic heart disease of native coronary artery without angina pectoris; Z95.5 Presence of coronary angioplasty implant and graft; R07.89 Other chest pain; I10 Essential (primary) hypertension; E78.5 Hyperlipidemia, unspecified; Z95.0 Presence of cardiac pacemaker; E10.9 Type 1 diabetes mellitus without complications; R12 Heartburn; R23.3 Spontaneous ecchymoses; M19.90 Unspecified osteoarthritis, unspecified site; M54.9 Dorsalgia, unspecified; J45.909 Unspecified asthma, uncomplicated; J44.9 Chronic obstructive pulmonary disease, unspecified; G47.30 Sleep apnea, unspecified; R06.83 Snoring; R06.02 Shortness of breath; Z88.8 Allergy status to other drugs, medicaments and biological substances; Z88.1 Allergy status to other antibiotic agents; Z88.2 Allergy status to sulfonamides; Z88.5 Allergy status to narcotic agent; Z91.048 Other nonmedicinal substance allergy status; Z91.02 Food additives allergy status; Z91.018 Allergy to other foods; Z79.82 Long term (current) use of aspirin; Z79.899 Other long term (current) drug therapy; Z87.442 Personal history of urinary calculi; Z79.52 Long term (current) use of systemic steroids; Z79.4 Long term (current) use of insulin; Z80.41 Family history of malignant neoplasm of ovary

== ENCOUNTER → 2017-07-16 | Outpatient (REF) | payer MEDICARE ==
[~2017-07-16] MED LIST changes: -DEXTROSE 50% 50 ML SYRINGE As Ordered ONE; -DEXTROSE 50% 50 ML SYRINGE IV ONE; -NS 500 ML IV ONE; -PROPOFOL 200 MG/20 ML VIAL As Ordered ONE
[2017-07-16 13:44] LABS: BASO % 0.1 % (0.0-1.0); EOS # 0.3 10^3/uL (0.0-0.50); EOS % 4.6 % (0.0-3.0); IMMATURE GRANULOCYTE % 0.4 % (0-0); LYMPH # 1.9 10^3/uL (1.5-4.5); LYMPH % 26.8 % (24.0-44.0); MEAN CORPUSCULAR HEMOGLOBIN 27.1 pg (27.0-33.0); MEAN CORPUSCULAR HGB CONC 31.3 g/dl (32.0-36.5); MEAN CORPUSCULAR VOLUME 86.7 fl (80.0-96.0); MONO # 0.8 10^3/uL (0.0-0.8); MONO % 11.2 % (0.0-5.0); NEUTROPHILS % 56.9 % (36.0-66.0); PLATELET COUNT, AUTOMATED 233 10^3/uL (150-450); RED CELL DISTRIBUTION WIDTH 14.8 % (11.5-14.5); WHITE BLOOD COUNT 7.1 10^3/uL (4.0-10.0)
[2017-07-16 14:12] LABS: ALBUMIN 3.6 GM/DL (3.2-5.2); ALBUMIN/GLOBULIN RATIO 0.97 (1.00-1.93); BILIRUBIN,TOTAL 0.4 MG/DL (0.2-1.0); CALCIUM LEVEL 8.5 MG/DL (8.8-10.2); CREATININE FOR GFR 1.01 MG/DL (0.55-1.02); GLOMERULAR FILTRATION RATE 56.4 (>39); TOTAL PROTEIN 7.3 GM/DL (6.4-8.2)
== END ==
LOC: M LAB REF 12:48
PROVIDERS: ATTEND Family Medicine Addiction Medicine
DX: Z00.01 Encounter for general adult medical examination with abnormal findings (principal); I48.2 Chronic atrial fibrillation; Z79.899 Other long term (current) drug therapy

== ENCOUNTER → 2017-07-18 | Outpatient (CLI) | payer MEDICARE ==
[~2017-07-18] MED LIST changes: +E-Z-GAS II EFFERVESCENT PACKET (SODIUM BICARB./CITRIC ACID/SIMETHICONE) As Ordered ONE; +E-Z-HD 98% w/w 340GM SUSP BTL As Ordered ONE; +E-Z-PAQUE 96% w/w SUSP 176GM BTL As Ordered ONE
--- NOTE | 2017-07-18 10:58 | REP ---
DOUBLE-CONTRAST ESOPHAGRAM: Motor Vehicle Compliance Analyst film of the chest demonstrates no acute abnormality. Double-contrast esophagram is performed. Swallowing mechanism appears normal with prompt passage of liquid barium through the oropharynx and hypopharynx into the esophagus. The esophagus is well distended with normal contour, caliber, and peristalsis. There is no stricture or mass. There is free flow of the barium through the gastroesophageal junction. There is no evidence of a hiatal hernia. I did not see gastroesophageal reflux during the exam. IMPRESSION: Essentially negative esophagram with no significant abnormality identified. Fluoroscopy time 1 minute 20 seconds. Signed by Brock Suarez MD 07/18/2017 05:17 P
== END ==
LOC: M RAD 08:46
PROVIDERS: ATTEND Family Medicine Addiction Medicine
DX: R13.10 Dysphagia, unspecified (principal)

== ENCOUNTER → 2017-07-25 | Outpatient (CLI) | payer MEDICARE ==
[~2017-07-25] MED LIST changes: -E-Z-GAS II EFFERVESCENT PACKET (SODIUM BICARB./CITRIC ACID/SIMETHICONE) As Ordered ONE; -E-Z-HD 98% w/w 340GM SUSP BTL As Ordered ONE; -E-Z-PAQUE 96% w/w SUSP 176GM BTL As Ordered ONE
--- NOTE | 2017-07-25 13:15 | REP ---
THYROID ULTRASOUND: Real-time sonographic evaluation of the thyroid performed and compared to prior study of 02/06/2016. Right lobe measures 4.0 x 1.0 x 1.9 cm. Left lobe measures 3.3 x 1.1 x 1.7 cm. Heterogeneous nodule in the upper pole of the right lobe demonstrates extensive internal calcifications. It is unchanged in size and appearance compared to the prior study measuring 11 x 7 x 9 mm. A couple of tiny cysts are seen in the left lobe, the largest 4 mm in diameter. IMPRESSION: Stable calcified nodule right lobe of thyroid. Signed by Brock Suarez MD 07/25/2017 02:46 P
== END ==
LOC: M RAD 10:57
PROVIDERS: ATTEND Family Medicine Addiction Medicine
DX: E04.1 Nontoxic single thyroid nodule (principal)

== ENCOUNTER → 2017-08-01 | Outpatient (CLI) | payer MEDICARE ==
[~2017-08-01] MED LIST changes: +E-Z-PAQUE 96% w/w SUSP 176GM BTL As Ordered ONE; +VARIBAR NECTAR 40% w/v 240ML SUSP BTL As Ordered ONE; +VARIBAR PUDDING 40% w/v 230ML TUBE As Ordered ONE
--- NOTE | 2017-08-01 14:36 | REP ---
MODIFIED BARIUM SWALLOW: HISTORY: Dysphagia. 2 minutes and 3 seconds of fluoroscopy time was utilized. Cine fluoroscopy is performed in the lateral projection while the attending swallowing therapist instructed the patient to consume varying textures of barium labeled material. FINDINGS: One episode of mild laryngeal reflux was observed during ingestion of thin liquid barium. There was some oral hesitancy and mild pooling in the vallecula but no other evidence of laryngeal penetration or aspiration was seen. Study is otherwise unremarkable. Signed by Robe Waldron MD 08/01/2017 03:16 P
== END ==
LOC: M ST 10:45
PROVIDERS: ATTEND Family Medicine Addiction Medicine
DX: R13.10 Dysphagia, unspecified (principal); J38.7 Other diseases of larynx
CPT/HCPCS: 74230; 92611; G8996; G8997; G8998

== ENCOUNTER → 2017-08-04 | Outpatient (CLI) | payer MEDICARE ==
[~2017-08-04] MED LIST changes: -E-Z-PAQUE 96% w/w SUSP 176GM BTL As Ordered ONE; -VARIBAR NECTAR 40% w/v 240ML SUSP BTL As Ordered ONE; -VARIBAR PUDDING 40% w/v 230ML TUBE As Ordered ONE
--- NOTE | 2017-08-04 17:10 | REP ---
CT Head without contrast HISTORY: Myoclonus COMPARISON: 12/19/2011 Areas of decreased attenuation are present in the periventricular and subcortical white matter. This represents small-vessel ischemic disease. There is no intraparenchymal hemorrhage, acute infarct, mass or midline shift. The ventricular system and cortical sulci are dilated consistent with minimal volume loss. There is no extra cerebral collection. There is no fracture. The visualized sinuses are clear. IMPRESSION: 1. Small vessel ischemic disease. 2. Minimal volume loss. Signed by Nilo Ward MD 08/04/2017 05:01 P
--- NOTE | 2017-08-05 09:23 | REP ---
CT LUMBAR SPINE WITHOUT CONTRAST: HISTORY: Back pain. COMPARISON: 04/19/2013. There is no disc bulge or herniation at the L1-2 and L2-3 levels. The nerves exit the neural foramina without compression. A diffuse disc bulge is present at the L3-4 level. There is minimal compression of the thecal sac. There is hypertrophy of the posterior articulating facets. The L3 nerves exit the neural foramina without compression. A diffuse disc bulge and mild size central disc protrusion with associated osteophyte formation are present at the L4-5 level. There is hypertrophy of the ligamenta flava and posterior articular facets. These findings produce severe central canal stenosis. There is compression of the L4 nerves in the neural foramina. A diffuse disc bulge and small central disc protrusion with associated osteophyte formation are present at the L5-S1 level. There is minimal compression at the thecal sac. There is hypertrophy of the posterior articulating facets. There is compression of the L5 nerves in the neural foramina. The L3-4 through L5-S1 intervertebral discs are decreased in height. Vacuum phenomenon is present at the L4-5 level. These findings are consistent with disc degeneration. There is minimal scoliosis convex to the left. IMPRESSION: 1. Diffuse disc bulge at the L3-4 level with minimal thecal sac compression. 2. Severe central canal stenosis at the L4-5 level secondary to disc bulge, disc protrusion, ligamentous and facet hypertrophy and osteophyte formation. There is compression of the L4 nerves in the neural foramen. The left L4 nerve compression is a new finding. 3. Diffuse disc bulge and small central disc protrusion with associated osteophyte formation at the L5-S1 level with minimal thecal sac compression. There is compression of the L5 nerves in the neural foramina. There is no other significant change. Signed by Nilo Ward MD 08/05/2017 09:35 A
== END ==
LOC: M RAD 16:46
PROVIDERS: ATTEND Psychiatry & Neurology Neurology
DX: M51.06 Intervertebral disc disorders with myelopathy, lumbar region (principal); I67.9 Cerebrovascular disease, unspecified; M54.5 Low back pain

== ENCOUNTER 2017-09-16 07:48 | Outpatient (RCR) | payer MEDICARE | END 2017-09-18 | LOC: M ST 07:48 | PROVIDERS: ATTEND Family Medicine Addiction Medicine | DX: Z51.89 Encounter for other specified aftercare (principal); R13.10 Dysphagia, unspecified | CPT/HCPCS: 92610; G8996; G8997 ==

== ENCOUNTER 2017-09-19 13:26 | Outpatient (RCR) | payer MEDICARE | END 2017-10-19 | LOC: M ST 09-23 13:30 | DX: R13.10 Dysphagia, unspecified (principal) | CPT/HCPCS: 92526 ==

== ENCOUNTER 2017-11-21 07:14 | Day surgery (SDC) | payer MEDICARE ==
[2017-11-21] MEDS: NS 1,000 ML IV (08:10)
[2017-11-21] MEDS: ASPIRIN 325 MG TAB PO (08:10)
[2017-11-21] MEDS: LEVALBUTEROL 1.25 MG/0.5 ML CONCENTRATE NEB INH (08:19)
[2017-11-21] MEDS ORDERED: LIDOCAINE 2% INJ 100 MG/5 ML SDV (FOR ANES.) As Ordered (08:43)
[2017-11-21] MEDS ORDERED: PROPOFOL 200 MG/20 ML VIAL As Ordered (08:43)
== END 2017-11-21 09:45 | disposition home or self-care (01) ==
LOC: M OPP 07:14
DX: R13.10 Dysphagia, unspecified (principal); I48.91 Unspecified atrial fibrillation; Z95.5 Presence of coronary angioplasty implant and graft; R07.89 Other chest pain; I25.10 Atherosclerotic heart disease of native coronary artery without angina pectoris; I10 Essential (primary) hypertension; E78.5 Hyperlipidemia, unspecified; Z95.0 Presence of cardiac pacemaker; E10.9 Type 1 diabetes mellitus without complications; E04.1 Nontoxic single thyroid nodule; R05 Cough; K57.32 Diverticulitis of large intestine without perforation or abscess without bleeding; R12 Heartburn; K21.9 Gastro-esophageal reflux disease without esophagitis; G25.81 Restless legs syndrome; M19.90 Unspecified osteoarthritis, unspecified site; M81.0 Age-related osteoporosis without current pathological fracture; F32.9 Major depressive disorder, single episode, unspecified; F41.9 Anxiety disorder, unspecified; J45.909 Unspecified asthma, uncomplicated; J44.9 Chronic obstructive pulmonary disease, unspecified; G47.30 Sleep apnea, unspecified; R06.83 Snoring; Z87.442 Personal history of urinary calculi; Z88.8 Allergy status to other drugs, medicaments and biological substances; Z88.1 Allergy status to other antibiotic agents; Z88.5 Allergy status to narcotic agent; Z88.2 Allergy status to sulfonamides; Z91.048 Other nonmedicinal substance allergy status; Z91.02 Food additives allergy status; Z91.018 Allergy to other foods; Z79.899 Other long term (current) drug therapy; Z79.82 Long term (current) use of aspirin; Z80.41 Family history of malignant neoplasm of ovary
CPT/HCPCS: 43235

== ENCOUNTER → 2017-11-24 | Outpatient (CLI) | payer MEDICARE | LOC: M RAD 11:39 | DX: J45.51 Severe persistent asthma with (acute) exacerbation (principal); J43.9 Emphysema, unspecified | CPT/HCPCS: 71046 ==

== ENCOUNTER → 2017-12-31 | Outpatient (CLI) | payer MEDICARE ==
[2017-12-31 15:21] LABS: DIGOXIN LEVEL 1.1 NG/ML (0.5-2.0)
== END ==
LOC: M LAB 14:07
DX: I47.1 Supraventricular tachycardia (principal)
CPT/HCPCS: 80162

== ENCOUNTER → 2018-01-22 | Outpatient (CLI) | payer MEDICARE | LOC: M RAD 10:52 | DX: E04.2 Nontoxic multinodular goiter (principal) | CPT/HCPCS: 76536 ==

== ENCOUNTER 2018-08-01 17:44 | Inpatient (IN) | payer MEDICARE ==
[2018-08-01 18:22] LABS: BASO % 0.1 % (0.0-1.0); HEMOGLOBIN 12.3 g/dl (12.0-15.5); IMMATURE GRANULOCYTE % 0.7 % (0-3.0); LYMPH # 0.6 10^3/uL (1.5-4.5); LYMPH % 3.9 % (24.0-44.0); MEAN CORPUSCULAR HEMOGLOBIN 26.5 pg (27.0-33.0); MEAN CORPUSCULAR HGB CONC 31.5 g/dl (32.0-36.5); MEAN CORPUSCULAR VOLUME 84.1 fl (80.0-96.0); MONO # 0.2 10^3/uL (0.0-0.8); MONO % 1.4 % (0.0-5.0); NEUTROPHILS # 13.8 10^3/uL (1.8-7.7); NEUTROPHILS % 93.9 % (36.0-66.0); PLATELET COUNT, AUTOMATED 181 10^3/uL (150-450); RED BLOOD COUNT 4.64 10^6/uL (4.00-5.40); WHITE BLOOD COUNT 14.7 10^3/uL (4.0-10.0)
[2018-08-01] MEDS: NS 1,000 ML IV ×2 (18:27→21:21)
[2018-08-01] MEDS: ASPIRIN 325 MG TAB PO (18:27)
[2018-08-01] MEDS: IPRATROPIUM 0.5MG/ALBUTEROL 2.5MG INH SOL UD 3ML (DUONEB)(J7620) NEB (18:27)
[2018-08-01 18:32] LABS: ABG BASE EXCESS 1.9 (-2.0-2.0); ABG HCO3 24.3 MEQ/L (22.0-26.0); ABG O2 SATURATION 99.7 % (95.0-99.0); ABG PARTIAL PRESSURE CO2 31.4 mmHg (35.0-45.0); ABG PARTIAL PRESSURE O2 207.2 mmHg (75.0-100.0); ABG STANDARD HCO3 26.2 MEQ/L (22.0-26.0); ABG TOTAL CO2 25.3 MEQ/L (23.0-31.0); ABG pH (ARTERIAL) 7.507 UNITS (7.350-7.450)
[2018-08-01 18:33] LABS: PROTHROMBIN TIME 14.3 SECONDS (12.1-14.4)
[2018-08-01 18:45] LABS: LACTIC ACID SEPSIS PROTOCOL 1.9 MMOL/L (0.4-2.0)
[2018-08-01 18:56] LABS: ANION GAP 10 MEQ/L (8-16); BLOOD UREA NITROGEN 15 MG/DL (7-18); CALCIUM LEVEL 8.2 MG/DL (8.8-10.2); CARBON DIOXIDE LEVEL 26 MEQ/L (21-32); CHLORIDE LEVEL 99 MEQ/L (98-107); CK-MB VALUE MASS < 1.0 NG/ML (<3.6); CPK CREATINE PHOSPHOKINASE 112 U/L (26-192); CREATININE FOR GFR 1.24 MG/DL (0.55-1.30); DIGOXIN LEVEL 1.1 NG/ML (0.5-2.0); GLOMERULAR FILTRATION RATE 44.4 (>39); GLUCOSE, FASTING 211 MG/DL (70-100); MB/CK RELATIVE INDEX 0.89 (< OR =4); NT-PRO BNP 922 PG/ML (<450); POTASSIUM SERUM 4.8 MEQ/L (3.5-5.1); SODIUM LEVEL 135 MEQ/L (136-145); TROPONIN I 0.02 NG/ML (< 0.10)
[2018-08-01 19:09] LABS: INFLUENZA A AMPLIFICATION NEGATIVE (NEGATIVE); INFLUENZA B AMPLIFICATION NEGATIVE (NEGATIVE)
[2018-08-01 20:05] LABS: KETONE, URINE AUTO RFX TRACE mg/dL (NEGATIVE); LEUKOCYTE ESTERASE UR AUTO RFX 3+ (NEGATIVE); NITRITE, URINE AUTO RFX POSITIVE (NEGATIVE); RBC, URINE AUTO RFX 90 /HPF (0-3); SPECIFIC GRAVITY UR AUTO RFX 1.012 (1.002-1.035); SQUAM EPITHELIAL CELL UR AURFX 3 /HPF (0-6); WBC, URINE AUTO RFX TNTC /HPF (0-3)
[2018-08-01] MEDS: CIPROFLOXACIN 400 MG in APPROPRIATE DILUENT 1 EA IV (20:40)
[2018-08-01] MEDS: HumaLOG INSULIN (NovoLOG) PER UNIT SC (21:00)
[2018-08-01] MEDS ORDERED: ONDANSETRON 4MG/2ML VIAL (J2405) IV (21:30)
[2018-08-01] MEDS ORDERED: CIPROFLOXACIN 400 MG in APPROPRIATE DILUENT 1 EA IV (21:30)
[2018-08-01] MEDS: diltiaZEM **CD** 180 MG CAP PO (21:36)
[2018-08-01] MEDS: ISOSORBIDE DIN. (ISORDIL) 30 MG TAB PO (21:38)
[2018-08-01] MEDS: LEVEMIR (INSULIN DETEMIR) 1 UNITS/0.01ML SC (21:38)
[2018-08-01] MEDS: HEPARIN SOD (PORCINE) 5000 UNITS/ML VIAL SC (22:00)
[2018-08-01] MEDS: GABAPENTIN 300 MG CAP PO (22:53)
[2018-08-01] MEDS: FAMOTIDINE 20 MG TAB PO (22:53)
[2018-08-01] MEDS: CYCLOBENZAPRINE 10 MG TAB PO (22:53)
[2018-08-01] MEDS: CLOPIDOGREL 75 MG TAB PO (22:54)
[2018-08-01] MEDS: ASPIRIN 81 MG ENTERIC TAB PO (22:54)
[2018-08-01] MEDS: CYANOCOBALAMIN 500 MCG TAB PO (22:54)
[2018-08-01] MEDS ORDERED: GLUCOSE 4 GM CHEW TABLET PO (23:00)
[2018-08-01] MEDS ORDERED: GLUCAGON FOR INJ 1 MG VIAL (J1610) SC (23:00)
[2018-08-01] MEDS ORDERED: DEXTROSE 50% 50 ML SYRINGE IV (23:00)
[2018-08-01] MEDS: NS 250 ML IV (23:45)
[2018-08-01] MEDS: PRAVASTATIN 20 MG TAB PO (23:47)
[2018-08-01] MEDS: MONTELUKAST 10 MG TAB PO (23:47)
[2018-08-01] MEDS: rOPINIRole 1MG TAB PO (23:48)
[2018-08-02] MEDS: HEPARIN SOD (PORCINE) 5000 UNITS/ML VIAL SC ×3 (05:48→21:20)
[2018-08-02] MEDS: NS 1,000 ML IV ×2 (05:49→17:50)
[2018-08-02 06:33] LABS: BASO % 0.1 % (0.0-1.0); EOS % 0.2 % (0.0-3.0); HEMATOCRIT 33.8 % (36.0-47.0); HEMOGLOBIN 10.6 g/dl (12.0-15.5); IMMATURE GRANULOCYTE % 0.6 % (0-3.0); LYMPH # 1.4 10^3/uL (1.5-4.5); LYMPH % 7.9 % (24.0-44.0); MEAN CORPUSCULAR HEMOGLOBIN 26.2 pg (27.0-33.0); MEAN CORPUSCULAR HGB CONC 31.4 g/dl (32.0-36.5); MEAN CORPUSCULAR VOLUME 83.7 fl (80.0-96.0); MONO # 1.4 10^3/uL (0.0-0.8); MONO % 7.8 % (0.0-5.0); NEUTROPHILS # 14.9 10^3/uL (1.8-7.7); NEUTROPHILS % 83.4 % (36.0-66.0); PLATELET COUNT, AUTOMATED 163 10^3/uL (150-450); RED BLOOD COUNT 4.04 10^6/uL (4.00-5.40); WHITE BLOOD COUNT 17.9 10^3/uL (4.0-10.0)
[2018-08-02 07:09] LABS: ANION GAP 6 MEQ/L (8-16); BLOOD UREA NITROGEN 20 MG/DL (7-18); CALCIUM LEVEL 7.4 MG/DL (8.8-10.2); CARBON DIOXIDE LEVEL 28 MEQ/L (21-32); CHLORIDE LEVEL 106 MEQ/L (98-107); CREATININE FOR GFR 1.27 MG/DL (0.55-1.30); GLOMERULAR FILTRATION RATE 43.2 (>39); GLUCOSE, FASTING 92 MG/DL (70-100); POTASSIUM SERUM 3.8 MEQ/L (3.5-5.1); SODIUM LEVEL 140 MEQ/L (136-145)
[2018-08-02] MEDS: HumaLOG INSULIN (NovoLOG) PER UNIT SC ×4 (07:30→21:00)
[2018-08-02] MEDS: cefTRIAXone SOD 1 GM in D5W MINI-BAG PLUS 50 ML IV (07:43)
[2018-08-02] MEDS ORDERED: HumaLOG INSULIN (NovoLOG) PER UNIT SC (08:00)
[2018-08-02] MEDS: PREVNAR 13 VACCINE SYRINGE (CPT CODE:90670) IM (09:00)
[2018-08-02] MEDS ORDERED: SENOKOT S TAB PO (11:15)
[2018-08-02] MEDS ORDERED: MOM 30ML SUSPENSION UDC PO (11:15)
[2018-08-02] MEDS: GABAPENTIN 300 MG CAP PO ×3 (11:49→21:20)
[2018-08-02] MEDS: ESCITALOPRAM OXALATE 10 MG TAB (LEXAPRO) PO (11:49)
[2018-08-02] MEDS: FAMOTIDINE 20 MG TAB PO ×2 (11:49→21:20)
[2018-08-02] MEDS: ISOSORBIDE DIN. (ISORDIL) 30 MG TAB PO ×3 (11:53→21:00)
[2018-08-02 12:42] LABS: BEDSIDE GLUCOSE 150 MG/DL (83-110)
[2018-08-02 12:42] LABS: BEDSIDE GLUCOSE 310 MG/DL (83-110)
[2018-08-02] MEDS: ACETAMINOPHEN TAB 650MG DOSE (2X325MG) PO (14:24)
[2018-08-02] MEDS ORDERED: CIPROFLOXACIN 400 MG in APPROPRIATE DILUENT 1 EA IV (16:00)
[2018-08-02 17:33] LABS: BEDSIDE GLUCOSE 168 MG/DL (83-110)
[2018-08-02 18:08] LABS: BEDSIDE GLUCOSE 152 MG/DL (83-110)
[2018-08-02 20:25] LABS: BEDSIDE GLUCOSE 104 MG/DL (83-110)
[2018-08-02] MEDS: LEVEMIR (INSULIN DETEMIR) 1 UNITS/0.01ML SC (21:00)
[2018-08-02] MEDS: diltiaZEM **CD** 180 MG CAP PO (21:00)
[2018-08-02] MEDS: MONTELUKAST 10 MG TAB PO (21:20)
[2018-08-02] MEDS: PRAVASTATIN 20 MG TAB PO (21:20)
[2018-08-02] MEDS: CYANOCOBALAMIN 500 MCG TAB PO (21:20)
[2018-08-02] MEDS: ASPIRIN 81 MG ENTERIC TAB PO (21:20)
[2018-08-02] MEDS: CLOPIDOGREL 75 MG TAB PO (21:21)
[2018-08-02] MEDS: rOPINIRole 1MG TAB PO (21:21)
[2018-08-03] MEDS: NS 1,000 ML IV (02:47)
[2018-08-03] MEDS: HEPARIN SOD (PORCINE) 5000 UNITS/ML VIAL SC ×3 (06:22→21:01)
[2018-08-03 07:02] LABS: BEDSIDE GLUCOSE 49 MG/DL (83-110)
[2018-08-03 07:24] LABS: BEDSIDE GLUCOSE 72 MG/DL (83-110)
[2018-08-03] MEDS: HumaLOG INSULIN (NovoLOG) PER UNIT SC ×4 (07:27→20:45)
[2018-08-03] MEDS: cefTRIAXone SOD 1 GM in D5W MINI-BAG PLUS 50 ML IV (07:57)
[2018-08-03] MEDS: GABAPENTIN 300 MG CAP PO ×3 (07:57→21:00)
[2018-08-03] MEDS: ESCITALOPRAM OXALATE 10 MG TAB (LEXAPRO) PO (07:57)
[2018-08-03] MEDS: ISOSORBIDE DIN. (ISORDIL) 30 MG TAB PO ×3 (07:58→21:00)
[2018-08-03] MEDS: FAMOTIDINE 20 MG TAB PO ×2 (07:58→21:00)
[2018-08-03 08:22] LABS: ALBUMIN 2.3 GM/DL (3.2-5.2); ALBUMIN/GLOBULIN RATIO 0.61 (1.00-1.93); ALKALINE PHOSPHATASE 82 U/L (45-117); ALT/SGPT 33 U/L (12-78); ANION GAP 7 MEQ/L (8-16); AST/SGOT 48 U/L (7-37); BILIRUBIN,TOTAL 0.3 MG/DL (0.2-1.0); BLOOD UREA NITROGEN 17 MG/DL (7-18); CALCIUM LEVEL 7.1 MG/DL (8.8-10.2); CARBON DIOXIDE LEVEL 24 MEQ/L (21-32); CHLORIDE LEVEL 111 MEQ/L (98-107); CREATININE FOR GFR 1.02 MG/DL (0.55-1.30); GLOMERULAR FILTRATION RATE 55.7 (>39); GLUCOSE, FASTING 57 MG/DL (70-100); MAGNESIUM LEVEL 2.2 MG/DL (1.8-2.4); POTASSIUM SERUM 3.5 MEQ/L (3.5-5.1); SODIUM LEVEL 142 MEQ/L (136-145); TOTAL PROTEIN 6.1 GM/DL (6.4-8.2)
[2018-08-03 08:25] LABS: BASO % 0.2 % (0.0-1.0); EOS # 0.1 10^3/uL (0.0-0.50); EOS % 0.4 % (0.0-3.0); HEMATOCRIT 30.9 % (36.0-47.0); HEMOGLOBIN 9.7 g/dl (12.0-15.5); IMMATURE GRANULOCYTE % 0.9 % (0-3.0); LYMPH # 1.4 10^3/uL (1.5-4.5); LYMPH % 8.7 % (24.0-44.0); MEAN CORPUSCULAR HEMOGLOBIN 26.6 pg (27.0-33.0); MEAN CORPUSCULAR HGB CONC 31.4 g/dl (32.0-36.5); MEAN CORPUSCULAR VOLUME 84.7 fl (80.0-96.0); MONO # 1.8 10^3/uL (0.0-0.8); NEUTROPHILS # 12.6 10^3/uL (1.8-7.7); NEUTROPHILS % 78.8 % (36.0-66.0); PLATELET COUNT, AUTOMATED 163 10^3/uL (150-450); RED BLOOD COUNT 3.65 10^6/uL (4.00-5.40); RED CELL DISTRIBUTION WIDTH 16.4 % (11.5-14.5); WHITE BLOOD COUNT 15.9 10^3/uL (4.0-10.0)
[2018-08-03 11:45] LABS: BEDSIDE GLUCOSE 81 MG/DL (83-110)
[2018-08-03] MEDS: IPRATROPIUM 0.5MG/ALBUTEROL 2.5MG INH SOL UD 3ML (DUONEB)(J7620) NEB (14:53)
[2018-08-03] MEDS: rOPINIRole 1MG TAB PO (21:00)
[2018-08-03] MEDS: CYANOCOBALAMIN 500 MCG TAB PO (21:00)
[2018-08-03] MEDS: MONTELUKAST 10 MG TAB PO (21:00)
[2018-08-03] MEDS: ASPIRIN 81 MG ENTERIC TAB PO (21:01)
[2018-08-03] MEDS: PRAVASTATIN 20 MG TAB PO (21:01)
[2018-08-03] MEDS: diltiaZEM **CD** 180 MG CAP PO (21:01)
[2018-08-03] MEDS: CLOPIDOGREL 75 MG TAB PO (21:01)
[2018-08-04] MEDS: HEPARIN SOD (PORCINE) 5000 UNITS/ML VIAL SC ×3 (05:19→21:11)
[2018-08-04 06:56] LABS: BASO % 0.2 % (0.0-1.0); EOS # 0.1 10^3/uL (0.0-0.50); EOS % 1.3 % (0.0-3.0); HEMATOCRIT 31.7 % (36.0-47.0); HEMOGLOBIN 9.8 g/dl (12.0-15.5); IMMATURE GRANULOCYTE % 1.3 % (0-3.0); LYMPH # 0.8 10^3/uL (1.5-4.5); LYMPH % 9.2 % (24.0-44.0); MEAN CORPUSCULAR HEMOGLOBIN 26.1 pg (27.0-33.0); MEAN CORPUSCULAR HGB CONC 30.9 g/dl (32.0-36.5); MEAN CORPUSCULAR VOLUME 84.5 fl (80.0-96.0); MONO % 10.9 % (0.0-5.0); NEUTROPHILS % 77.1 % (36.0-66.0); PLATELET COUNT, AUTOMATED 165 10^3/uL (150-450); RED BLOOD COUNT 3.75 10^6/uL (4.00-5.40); RED CELL DISTRIBUTION WIDTH 16.5 % (11.5-14.5); WHITE BLOOD COUNT 9.1 10^3/uL (4.0-10.0)
[2018-08-04 07:14] LABS: MAGNESIUM LEVEL 2.4 MG/DL (1.8-2.4)
[2018-08-04] MEDS: IPRATROPIUM 0.5MG/ALBUTEROL 2.5MG INH SOL UD 3ML (DUONEB)(J7620) NEB ×2 (08:00→18:37)
[2018-08-04] MEDS: cefTRIAXone SOD 1 GM in D5W MINI-BAG PLUS 50 ML IV (08:34)
[2018-08-04] MEDS: HumaLOG INSULIN (NovoLOG) PER UNIT SC ×4 (08:34→20:24)
[2018-08-04] MEDS: FAMOTIDINE 20 MG TAB PO ×2 (08:35→20:30)
[2018-08-04] MEDS: ISOSORBIDE DIN. (ISORDIL) 30 MG TAB PO ×3 (08:35→20:29)
[2018-08-04] MEDS: GABAPENTIN 300 MG CAP PO ×3 (08:35→20:30)
[2018-08-04] MEDS: ESCITALOPRAM OXALATE 10 MG TAB (LEXAPRO) PO (08:35)
[2018-08-04 09:27] LABS: BEDSIDE GLUCOSE 226 MG/DL (83-110)
[2018-08-04] MEDS: FUROSEMIDE 40 MG/4 ML VIAL (J1940) IV ×2 (12:17→17:38)
[2018-08-04] MEDS: LACTOBACILLUS ACIDOPHILUS CAP (BACID) PO ×2 (12:17→17:37)
[2018-08-04] MEDS: MONTELUKAST 10 MG TAB PO (20:29)
[2018-08-04] MEDS: diltiaZEM **CD** 180 MG CAP PO (20:30)
[2018-08-04] MEDS: PRAVASTATIN 20 MG TAB PO (20:30)
[2018-08-04] MEDS: CYANOCOBALAMIN 500 MCG TAB PO (20:30)
[2018-08-04] MEDS: ASPIRIN 81 MG ENTERIC TAB PO (20:30)
[2018-08-04] MEDS: CLOPIDOGREL 75 MG TAB PO (20:30)
[2018-08-04] MEDS: rOPINIRole 1MG TAB PO (20:31)
[2018-08-04] MEDS: LEVEMIR (INSULIN DETEMIR) 1 UNITS/0.01ML SC (21:11)
[2018-08-05] MEDS: HEPARIN SOD (PORCINE) 5000 UNITS/ML VIAL SC ×2 (05:28→14:17)
[2018-08-05 06:12] LABS: BASO % 0.1 % (0.0-1.0); EOS # 0.1 10^3/uL (0.0-0.50); EOS % 0.9 % (0.0-3.0); HEMATOCRIT 31.2 % (36.0-47.0); HEMOGLOBIN 9.8 g/dl (12.0-15.5); IMMATURE GRANULOCYTE % 1.3 % (0-3.0); LYMPH % 13.7 % (24.0-44.0); MEAN CORPUSCULAR HEMOGLOBIN 26.2 pg (27.0-33.0); MEAN CORPUSCULAR HGB CONC 31.4 g/dl (32.0-36.5); MEAN CORPUSCULAR VOLUME 83.4 fl (80.0-96.0); MONO # 1.1 10^3/uL (0.0-0.8); MONO % 14.5 % (0.0-5.0); NEUTROPHILS # 5.3 10^3/uL (1.8-7.7); NEUTROPHILS % 69.5 % (36.0-66.0); PLATELET COUNT, AUTOMATED 187 10^3/uL (150-450); RED BLOOD COUNT 3.74 10^6/uL (4.00-5.40); RED CELL DISTRIBUTION WIDTH 16.6 % (11.5-14.5); WHITE BLOOD COUNT 7.6 10^3/uL (4.0-10.0)
[2018-08-05 06:32] LABS: MAGNESIUM LEVEL 2.2 MG/DL (1.8-2.4)
[2018-08-05] MEDS: ESCITALOPRAM OXALATE 10 MG TAB (LEXAPRO) PO (08:25)
[2018-08-05] MEDS: FUROSEMIDE 40 MG/4 ML VIAL (J1940) IV ×2 (08:25→16:42)
[2018-08-05] MEDS: HumaLOG INSULIN (NovoLOG) PER UNIT SC ×4 (08:25→20:22)
[2018-08-05] MEDS: LACTOBACILLUS ACIDOPHILUS CAP (BACID) PO ×2 (08:25→17:58)
[2018-08-05] MEDS: cefTRIAXone SOD 1 GM in D5W MINI-BAG PLUS 50 ML IV (08:26)
[2018-08-05] MEDS: FAMOTIDINE 20 MG TAB PO ×2 (08:27→20:20)
[2018-08-05] MEDS: GABAPENTIN 300 MG CAP PO ×3 (08:27→20:20)
[2018-08-05] MEDS: ISOSORBIDE DIN. (ISORDIL) 30 MG TAB PO ×3 (08:27→20:22)
[2018-08-05 09:29] LABS: ANION GAP 3 MEQ/L (8-16); BLOOD UREA NITROGEN 11 MG/DL (7-18); CALCIUM LEVEL 7.8 MG/DL (8.8-10.2); CARBON DIOXIDE LEVEL 32 MEQ/L (21-32); CHLORIDE LEVEL 107 MEQ/L (98-107); CREATININE FOR GFR 1.01 MG/DL (0.55-1.30); GLOMERULAR FILTRATION RATE 56.3 (>39); GLUCOSE, FASTING 106 MG/DL (70-100); POTASSIUM SERUM 3.3 MEQ/L (3.5-5.1); SODIUM LEVEL 142 MEQ/L (136-145)
[2018-08-05] MEDS: POTASSIUM CHLORIDE 10 MEQ SR TABLET PO (12:20)
[2018-08-05] MEDS: IPRATROPIUM 0.5MG/ALBUTEROL 2.5MG INH SOL UD 3ML (DUONEB)(J7620) NEB (16:25)
[2018-08-05] MEDS: ACETAMINOPHEN TAB 650MG DOSE (2X325MG) PO (18:54)
[2018-08-05] MEDS: ASPIRIN 81 MG ENTERIC TAB PO (20:20)
[2018-08-05] MEDS: CYANOCOBALAMIN 500 MCG TAB PO (20:20)
[2018-08-05] MEDS: CLOPIDOGREL 75 MG TAB PO (20:20)
[2018-08-05] MEDS: CEFDINIR 300 MG CAP (OMNICEF) PO (20:21)
[2018-08-05] MEDS: diltiaZEM **CD** 180 MG CAP PO (20:21)
[2018-08-05] MEDS: LEVEMIR (INSULIN DETEMIR) 1 UNITS/0.01ML SC (20:23)
[2018-08-05] MEDS: rOPINIRole 1MG TAB PO (20:26)
[2018-08-05] MEDS: PRAVASTATIN 20 MG TAB PO (20:26)
[2018-08-05] MEDS: MONTELUKAST 10 MG TAB PO (20:26)
[2018-08-05 23:13] LABS: BEDSIDE GLUCOSE 152 MG/DL (83-110)
[2018-08-05 23:13] LABS: BEDSIDE GLUCOSE 85 MG/DL (83-110)
[2018-08-05 23:13] LABS: BEDSIDE GLUCOSE 151 MG/DL (83-110)
[2018-08-05 23:13] LABS: BEDSIDE GLUCOSE 185 MG/DL (83-110)
[2018-08-05 23:13] LABS: BEDSIDE GLUCOSE 145 MG/DL (83-110)
[2018-08-05 23:14] LABS: BEDSIDE GLUCOSE 111 MG/DL (83-110)
[2018-08-05 23:14] LABS: BEDSIDE GLUCOSE 306 MG/DL (83-110)
[2018-08-05 23:14] LABS: BEDSIDE GLUCOSE 149 MG/DL (83-110)
[2018-08-05 23:14] LABS: BEDSIDE GLUCOSE 103 MG/DL (83-110)
[2018-08-05 23:14] LABS: BEDSIDE GLUCOSE 173 MG/DL (83-110)
[2018-08-05 23:14] LABS: BEDSIDE GLUCOSE 242 MG/DL (83-110)
[2018-08-05 23:14] LABS: BEDSIDE GLUCOSE 126 MG/DL (83-110)
[2018-08-06] MEDS: ACETAMINOPHEN TAB 650MG DOSE (2X325MG) PO ×2 (01:52→14:48)
[2018-08-06] MEDS: HEPARIN SOD (PORCINE) 5000 UNITS/ML VIAL SC ×4 (01:52→22:42)
[2018-08-06 05:58] LABS: BASO % 0.1 % (0.0-1.0); EOS # 0.4 10^3/uL (0.0-0.50); EOS % 5.1 % (0.0-3.0); HEMATOCRIT 32.7 % (36.0-47.0); HEMOGLOBIN 10.4 g/dl (12.0-15.5); IMMATURE GRANULOCYTE % 1.1 % (0-3.0); LYMPH # 1.4 10^3/uL (1.5-4.5); LYMPH % 17.5 % (24.0-44.0); MEAN CORPUSCULAR HEMOGLOBIN 25.9 pg (27.0-33.0); MEAN CORPUSCULAR HGB CONC 31.8 g/dl (32.0-36.5); MEAN CORPUSCULAR VOLUME 81.3 fl (80.0-96.0); MONO # 1.3 10^3/uL (0.0-0.8); MONO % 15.4 % (0.0-5.0); NEUTROPHILS % 60.8 % (36.0-66.0); PLATELET COUNT, AUTOMATED 221 10^3/uL (150-450); RED BLOOD COUNT 4.02 10^6/uL (4.00-5.40); RED CELL DISTRIBUTION WIDTH 16.3 % (11.5-14.5); WHITE BLOOD COUNT 8.2 10^3/uL (4.0-10.0)
[2018-08-06 06:29] LABS: C REACTIVE PROTEIN QUANTITATIV 8.26 MG/DL (0.00-0.30)
[2018-08-06 07:10] LABS: BEDSIDE GLUCOSE 123 MG/DL (83-110)
[2018-08-06] MEDS: HumaLOG INSULIN (NovoLOG) PER UNIT SC ×4 (08:15→22:14)
[2018-08-06] MEDS: LACTOBACILLUS ACIDOPHILUS CAP (BACID) PO ×2 (08:23→17:27)
[2018-08-06] MEDS: FUROSEMIDE 40 MG/4 ML VIAL (J1940) IV ×2 (08:23→17:27)
[2018-08-06] MEDS: CEFDINIR 300 MG CAP (OMNICEF) PO ×2 (08:23→20:12)
[2018-08-06] MEDS: ISOSORBIDE DIN. (ISORDIL) 30 MG TAB PO ×3 (08:24→20:13)
[2018-08-06] MEDS: ESCITALOPRAM OXALATE 10 MG TAB (LEXAPRO) PO (08:24)
[2018-08-06] MEDS: FAMOTIDINE 20 MG TAB PO ×2 (08:24→20:12)
[2018-08-06] MEDS: GABAPENTIN 300 MG CAP PO ×3 (08:24→20:12)
[2018-08-06 08:27] LABS: ANION GAP 6 MEQ/L (8-16); BLOOD UREA NITROGEN 15 MG/DL (7-18); CALCIUM LEVEL 8.2 MG/DL (8.8-10.2); CARBON DIOXIDE LEVEL 30 MEQ/L (21-32); CHLORIDE LEVEL 106 MEQ/L (98-107); CREATININE FOR GFR 1.06 MG/DL (0.55-1.30); GLOMERULAR FILTRATION RATE 53.2 (>39); GLUCOSE, FASTING 63 MG/DL (70-100); POTASSIUM SERUM 3.4 MEQ/L (3.5-5.1); SODIUM LEVEL 142 MEQ/L (136-145)
[2018-08-06] MEDS: IPRATROPIUM 0.5MG/ALBUTEROL 2.5MG INH SOL UD 3ML (DUONEB)(J7620) NEB (08:30)
[2018-08-06] MEDS: POTASSIUM CHLORIDE 10 MEQ SR TABLET PO (14:48)
[2018-08-06] MEDS: diltiaZEM **CD** 180 MG CAP PO (20:11)
[2018-08-06] MEDS: CYANOCOBALAMIN 500 MCG TAB PO (20:11)
[2018-08-06] MEDS: CLOPIDOGREL 75 MG TAB PO (20:11)
[2018-08-06] MEDS: ASPIRIN 81 MG ENTERIC TAB PO (20:12)
[2018-08-06] MEDS: rOPINIRole 1MG TAB PO (20:12)
[2018-08-06] MEDS: PRAVASTATIN 20 MG TAB PO (20:13)
[2018-08-06] MEDS: MONTELUKAST 10 MG TAB PO (20:15)
[2018-08-06] MEDS: LEVEMIR (INSULIN DETEMIR) 1 UNITS/0.01ML SC (20:20)
[2018-08-06 21:25] LABS: BEDSIDE GLUCOSE 154 MG/DL (83-110)
[2018-08-07 04:24] LABS: BEDSIDE GLUCOSE 59 MG/DL (83-110)
[2018-08-07 04:24] LABS: BEDSIDE GLUCOSE 147 MG/DL (83-110)
[2018-08-07 04:25] LABS: BEDSIDE GLUCOSE 149 MG/DL (83-110)
[2018-08-07 04:25] LABS: BEDSIDE GLUCOSE 199 MG/DL (83-110)
[2018-08-07 05:59] LABS: BASO % 0.5 % (0.0-1.0); EOS # 0.5 10^3/uL (0.0-0.50); EOS % 5.6 % (0.0-3.0); HEMATOCRIT 34.7 % (36.0-47.0); IMMATURE GRANULOCYTE % 2.6 % (0-3.0); LYMPH # 1.5 10^3/uL (1.5-4.5); LYMPH % 17.3 % (24.0-44.0); MEAN CORPUSCULAR HEMOGLOBIN 26.2 pg (27.0-33.0); MEAN CORPUSCULAR HGB CONC 31.7 g/dl (32.0-36.5); MEAN CORPUSCULAR VOLUME 82.6 fl (80.0-96.0); MONO # 1.2 10^3/uL (0.0-0.8); MONO % 14.5 % (0.0-5.0); NEUTROPHILS # 5.1 10^3/uL (1.8-7.7); NEUTROPHILS % 59.5 % (36.0-66.0); PLATELET COUNT, AUTOMATED 250 10^3/uL (150-450); RED CELL DISTRIBUTION WIDTH 16.6 % (11.5-14.5); WHITE BLOOD COUNT 8.5 10^3/uL (4.0-10.0)
[2018-08-07 06:21] LABS: C REACTIVE PROTEIN QUANTITATIV 7.58 MG/DL (0.00-0.30); MAGNESIUM LEVEL 2.1 MG/DL (1.8-2.4)
[2018-08-07] MEDS: HEPARIN SOD (PORCINE) 5000 UNITS/ML VIAL SC ×2 (06:31→12:36)
[2018-08-07 07:16] LABS: ANION GAP 7 MEQ/L (8-16); BLOOD UREA NITROGEN 16 MG/DL (7-18); CALCIUM LEVEL 8.5 MG/DL (8.8-10.2); CARBON DIOXIDE LEVEL 31 MEQ/L (21-32); CHLORIDE LEVEL 102 MEQ/L (98-107); CREATININE FOR GFR 1.29 MG/DL (0.55-1.30); GLOMERULAR FILTRATION RATE 42.4 (>39); GLUCOSE, FASTING 92 MG/DL (70-100); POTASSIUM SERUM 4.2 MEQ/L (3.5-5.1); SODIUM LEVEL 140 MEQ/L (136-145)
[2018-08-07] MEDS: HumaLOG INSULIN (NovoLOG) PER UNIT SC ×2 (07:30→12:36)
[2018-08-07] MEDS: ESCITALOPRAM OXALATE 10 MG TAB (LEXAPRO) PO (08:34)
[2018-08-07] MEDS: ISOSORBIDE DIN. (ISORDIL) 30 MG TAB PO ×2 (08:34→15:29)
[2018-08-07] MEDS: GABAPENTIN 300 MG CAP PO ×2 (08:35→15:30)
[2018-08-07] MEDS: FAMOTIDINE 20 MG TAB PO (08:35)
[2018-08-07] MEDS: LACTOBACILLUS ACIDOPHILUS CAP (BACID) PO (08:35)
[2018-08-07] MEDS: CEFDINIR 300 MG CAP (OMNICEF) PO (08:35)
[2018-08-07] MEDS: FUROSEMIDE 40 MG/4 ML VIAL (J1940) IV (08:36)
[2018-08-07] MEDS: IPRATROPIUM 0.5MG/ALBUTEROL 2.5MG INH SOL UD 3ML (DUONEB)(J7620) NEB (09:14)
[2018-08-07] MEDS: ACETAMINOPHEN TAB 650MG DOSE (2X325MG) PO (14:07)
[2018-08-07 17:03] LABS: BEDSIDE GLUCOSE 158 MG/DL (83-110)
[2018-08-07 17:04] LABS: BEDSIDE GLUCOSE 175 MG/DL (83-110)
== END 2018-08-07 16:00 | disposition home health service (06) | DRG 871 ==
LOC: M ED 17:44 → M ED INP 21:21 → M MSPAV 22:32
PROVIDERS: Internal Medicine
DX: A41.9 Sepsis, unspecified organism (principal); I50.23 Acute on chronic systolic (congestive) heart failure; N10 Acute pyelonephritis; I13.0 Hypertensive heart and chronic kidney disease with heart failure and stage 1 through stage 4 chronic kidney disease, or unspecified chronic kidney disease; K52.9 Noninfective gastroenteritis and colitis, unspecified; I25.10 Atherosclerotic heart disease of native coronary artery without angina pectoris; I48.91 Unspecified atrial fibrillation; J44.9 Chronic obstructive pulmonary disease, unspecified; F41.9 Anxiety disorder, unspecified; K21.9 Gastro-esophageal reflux disease without esophagitis; G47.33 Obstructive sleep apnea (adult) (pediatric); N18.3 Chronic kidney disease, stage 3 (moderate); K59.00 Constipation, unspecified; M54.5 Low back pain; E11.22 Type 2 diabetes mellitus with diabetic chronic kidney disease; G25.81 Restless legs syndrome; Z87.442 Personal history of urinary calculi; Z95.5 Presence of coronary angioplasty implant and graft; B96.20 Unspecified Escherichia coli [E. coli] as the cause of diseases classified elsewhere; Z95.0 Presence of cardiac pacemaker; Z99.81 Dependence on supplemental oxygen; Z88.2 Allergy status to sulfonamides; Z88.5 Allergy status to narcotic agent; Z88.8 Allergy status to other drugs, medicaments and biological substances; Z87.891 Personal history of nicotine dependence; Z79.82 Long term (current) use of aspirin; Z79.02 Long term (current) use of antithrombotics/antiplatelets; Z79.4 Long term (current) use of insulin; Z79.899 Other long term (current) drug therapy